=== PATIENT | female | born 1940 ===

== ENCOUNTER → 2024-02-20 13:11 | Outpatient (REF) | payer MEDICARE, OTHER, SELFPAY ==
[2024-02-20 13:34] LABS: % Basophils 0.2 % (0-2); % Immature Granulocytes 0.5 % (0-0.5); % Lymphocytes 15.8 % (20.5-51.1); % Monocytes 4.8 % (1.7-9.3); % Neutrophils 76.7 % (42.2-75.2); Absolute Eosinophils 0.3 10^3/uL (0-0.7); Absolute Immature Granulocytes 0.1 10^3/uL (0-0.05); Absolute Monocytes 0.6 10^3/uL (0.1-0.6); Absolute Neutrophils 9.8 10^3/uL (1.4-6.5); Hematocrit 38.7 % (37.0-47.0); Hemoglobin 11.7 g/dL (12.0-16.0); Mean Corp Hgb Conc. 30.2 g/dL (33.0-37.0); Mean Corpuscular Hgb 27.6 pg (27.0-31.0); Mean Corpuscular Volume 91.3 fL (81.0-99.0); Mean Platelet Volume 10.6 fL (7.4-10.4); Platelet Count 400 10^3/uL (130-400); Red Blood Cell Count 4.24 10^6/uL (4.20-5.40); Red Cell Dist. Width 19.9 % (11.5-14.5); White Blood Cell Count 12.8 10^3/uL (4.8-10.8)
[2024-02-20 14:28] LABS: ALT (SGPT) 11 U/L (0-35); AST (SGOT) 14 U/L (14-36); Albumin 2.4 g/dl (3.5-5.0); Alkaline Phosphatase 118 U/L (38-126); Blood Urea Nitrogen 14 mg/dl (7-17); Calcium 8.2 mg/dl (8.4-10.2); Carbon Dioxide 24 mmol/L (22-30); Chloride 102 mmol/L (98-107); Glucose 101 mg/dl (70-99); Potassium 3.9 mmol/L (3.5-5.1); Sodium 133 mmol/L (135-145); Total Protein 4.9 g/dl (6.3-8.2); eGFR > 60.00
[2024-02-20 14:56] LABS: TSH 4.33 uIU/ml (0.47-4.68)
[2024-02-20 18:46] LABS: CA 125 308 U/mL (0-35)
== END ==
LOC: OIDL 13:11
PROVIDERS: ATTENDING PHYSICIAN Obstetrics & Gynecology Gynecologic Oncology; FAMILY PHYSICIAN Internal Medicine Geriatric Medicine
DX: C18.7 Malignant neoplasm of sigmoid colon (principal); R18.0 Malignant ascites; C54.1 Malignant neoplasm of endometrium
CPT/HCPCS: 80053; 84443; 85025; 86304

== ENCOUNTER → 2024-03-08 11:14 | Outpatient (REF) | payer MEDICARE, OTHER, SELFPAY ==
[2024-03-08 11:33] VITALS: BP 131/99; BP_SYST 94
[2024-03-08 12:23] VITALS: BP 121/109
[2024-03-08 14:12] LABS: Body Fluid WBC 5210 /CUMM
[2024-03-08 14:13] LABS: Body Fluid Mononuclear 22.7 %; Body Fluid Polymorphonuclear 77.3 %
[2024-03-08 15:38] LABS: Body Fluid Second Tech DW
== END ==
LOC: RADI 11:14
PROVIDERS: ATTENDING PHYSICIAN Physician Assistant Surgical
DX: C54.1 Malignant neoplasm of endometrium (principal); R18.0 Malignant ascites
CPT/HCPCS: 88305; 49083; 88112; 88341; 88342; 88360; 89051

== ENCOUNTER → 2024-03-26 12:48 | Outpatient (REF) | payer MEDICARE, OTHER, SELFPAY ==
[2024-03-26 13:12] VITALS: BP 106/89
== END ==
LOC: RADI 12:48
PROVIDERS: ATTENDING PHYSICIAN Nurse Practitioner Adult Health
DX: J90 Pleural effusion, not elsewhere classified (principal)
CPT/HCPCS: 32555; 71045

== ENCOUNTER → 2024-04-03 07:56 | Outpatient (REF) | payer MEDICARE, OTHER, SELFPAY ==
[2024-04-03 08:34] VITALS: BP 108/96; BP_SYST 75
[2024-04-03 09:09] VITALS: BP 119/99
[2024-04-03 10:42] LABS: Body Fluid Mononuclear 24.6 %; Body Fluid Polymorphonuclear 75.4 %; Body Fluid WBC 527 /CUMM
[2024-04-03 10:45] LABS: Body Fluid Second Tech EM
== END ==
LOC: RADI 07:56
PROVIDERS: ATTENDING PHYSICIAN Physician Assistant Surgical; FAMILY PHYSICIAN Internal Medicine; OTHER PHYSICIAN Family Medicine; OTHER PHYSICIAN Obstetrics & Gynecology Gynecologic Oncology
DX: C80.1 Malignant (primary) neoplasm, unspecified (principal); R18.0 Malignant ascites; J91.0 Malignant pleural effusion
CPT/HCPCS: 32555; 49083; 71045; 89051

== ENCOUNTER → 2024-04-26 08:40 | Outpatient (REF) | payer MEDICARE, OTHER, SELFPAY ==
[2024-04-26 08:57] VITALS: BP 129/97; BP_SYST 70
[2024-04-26 09:34] VITALS: BP 133/84
[2024-04-26 10:53] LABS: Body Fluid Polymorphonuclear 39.2 %; Body Fluid WBC 474 /CUMM
[2024-04-26 10:54] LABS: Body Fluid Mononuclear 60.8 %
[2024-04-26 11:56] LABS: Body Fluid Second Tech CMB
== END ==
LOC: RADI 08:40
PROVIDERS: Physician Assistant; ATTENDING PHYSICIAN Physician Assistant Surgical
DX: C80.1 Malignant (primary) neoplasm, unspecified (principal); R18.0 Malignant ascites
CPT/HCPCS: 49083; 89051

== ENCOUNTER 2024-05-28 17:31 | Inpatient (IN) | payer MEDICARE, OTHER, SELFPAY ==
[2024-05-28] VITALS (9 sets, daily range): BP systolic 100–136; BP diastolic 56–104; BMI 23.3
[2024-05-28 13:20] LABS: % Basophils 0.3 % (0-2); % Immature Granulocytes 0.8 % (0-0.5); % Lymphocytes 9.9 % (20.5-51.1); % Monocytes 4.7 % (1.7-9.3); % Neutrophils 84.3 % (42.2-75.2); Absolute Basophils 0.1 10^3/uL (0-0.2); Absolute Immature Granulocytes 0.1 10^3/uL (0-0.05); Absolute Lymphocytes 1.7 10^3/uL (1.2-3.4); Absolute Monocytes 0.8 10^3/uL (0.1-0.6); Absolute Neutrophils 14.4 10^3/uL (1.4-6.5); Hematocrit 39.4 % (37.0-47.0); Hemoglobin 12.2 g/dL (12.0-16.0); Mean Corpuscular Hgb 25.2 pg (27.0-31.0); Mean Corpuscular Volume 81.4 fL (81.0-99.0); Mean Platelet Volume 10.2 fL (7.4-10.4); Nucleated Red Blood Cells % 0 %; Platelet Count 398 10^3/uL (130-400); Red Blood Cell Count 4.84 10^6/uL (4.20-5.40); Red Cell Dist. Width 20.6 % (11.5-14.5)
[2024-05-28 13:40] LABS: ALT (SGPT) 12 U/L (0-35); AST (SGOT) 17 U/L (14-36); Albumin 3.1 g/dl (3.5-5.0); Alkaline Phosphatase 96 U/L (38-126); Blood Urea Nitrogen 31 mg/dl (7-17); Calcium 9.2 mg/dl (8.4-10.2); Carbon Dioxide 26 mmol/L (22-30); Chloride 103 mmol/L (98-107); Glucose 132 mg/dl (70-99); Lipase 24 U/L (23-300); Potassium 3.9 mmol/L (3.5-5.1); Sodium 140 mmol/L (135-145); Total Bilirubin 1.4 mg/dl (0.2-1.3); eGFR > 60.00
--- NOTE | 2024-05-28 14:18 | ED.GENMED ---
History of Present Illness
<Erika Herrera NP - Last Filed: 05/28/24 21:25>
General
Chief Complaint: Abdominal Symptoms
Source: patient and family (son)
Exam Limitations: none
Time Seen by Provider: 05/28/24 14:07
Nursing documentation reviewed up to this point in time: agreed with
History of Present Illness
History of Present Illness:
Patient to ED with complaint of intractable vomiting. She was admited to [facility] this past for same. Treated with IV fluids and zofran, stabilized. Discharged home on 3 day course of cefuroxime for possible utI, however she did not
take the antibiotic. Reviewing discharge summary from [facility], CT reveals 4mm left proximal ureteral calculus with moderate hydronephrosis. Also with large bilateral pleural effusions and opacity RLL concerning for pneumonia. (does not appear that
antibiotics were given inpatient) gastritis. 10cm fluid collection noted overlying right hepatic lobe, loculated simple fluid collection seen posterior to gastric fundus. Mild free fluid throughout abdomen. She did well until last PM when
symptoms returned. Taking Zofran at home without relief. Her PCP prescribed rectal compazine with some decrease in her vomiting. She was diagnosed with endometrial CA 2021. SHe had a hysterectomy and was started on chemo q 6 weeks thru [facility].
Son states she was told she was in remission. Last year new 'non aggressive tumors' in pelvis were identified She was referred to [facility] by PCP and was stared on chemo weekly Oct 2023. SOn states she was unable to tolerate the chemo and this was
then stopped in Jan 2024. Since then she has hand multiple paracentesis for abd. ascites. Last one 3-4 weeks ago. She is now following with oncology thru [place] so son brought her here for continuity. She denies fever/chills. Reports
generalized abdominal discomfort and bloating. Report of discharge summary scanned to chart.
Past History
<Erika Herrera NP - Last Filed: 05/28/24 21:25>
Past History
ED Past Medical History: Arrthythmia (afib), Cancer ( uterine), HTN, Hypothyroidism and Other (neuropathy)
ED Past Surgical History: Gynecological (hysterectomy 2021)
Review of Systems
<Erika Herrera NP - Last Filed: 05/28/24 21:25>
Review of Systems
Allergies reviewed?: Yes
All Other Systems: ROS reviewed and negative except as documented in HPI and ROS
Constitutional: Reports fatigue
EENT: Reports no symptoms
Respiratory: Reports no symptoms
Cardiac: Reports no symptoms
ABD/GI: Reports abdominal pain (generalized discomfort), nausea, vomiting and anorexia
: Reports no symptoms
Musculoskeletal: Reports no symptoms
Skin: Reports no symptoms
Neurological: Reports weakness
Psychiatric: Reports no symptoms
Phy Exam
<Erika Herrera NP - Last Filed: 05/28/24 21:25>
General Physical Exam
General Presentation: mild distress
General age: appears stated age
General Skin: warm and dry
General Habitus: normal
General Mental: alert
Cardiovascular Exam
Cardiovascular Exam: regular rate/rhythm
Pulmonary Exam
Pulmonary Exam: lungs clear, no respiratory distress and chest non tender
Gastrointestinal Exam
Gastrointestinal Exam: normal bowel sounds, no organomegaly, no pulsatile mass and non distended
Palpation: generalized: Mild tenderness
Musculoskeletal Exam
Musculoskeletal Exam: full ROM and edema (+3edema RLE, +2 LLE)
Skin Exam
Skin Exam: normal color, warm/dry and no rash
Psychiatric Exam
Psychiatric Exam: normal mood/affect
Course
<Erika Herrera NP - Last Filed: 05/28/24 21:25>
Orders/Labs/Results
Orders:
Orders
05/28/24 12:55
Electrocardiogram (*1) Urgent
Reason for Study: Fatigue / Weakness
EKG- Treatment ONCE
05/28/24 13:03
Complete Blood Count/With Diff Urgent
Comprehensive Metabolic Panel Urgent
Digoxin Urgent
Comment: ADD ON
Lipase Urgent
05/28/24 14:17
Urinalysis Reflex To Culture Urgent
0.9% Sodium Chloride 500 ml [Nss] 500 ml IV BOLUS
Prochlorperazine [Compazine] 10 mg IV NOW STA
05/28/24 14:18
CT Abd/pel W Iv Cont (trauma) Urgent
Comment:
Reason For Exam: intractable vomiting
05/28/24 14:34
CR Chest - 2 Views Urgent
Comment:
Reason For Exam: SOB
05/28/24 14:50
COVID-19 Antigen Urgent
Source: Nasal Swab
Influenza A+B Rapid Molecular Urgent
GABRIELE Source: Nasal Swab
Specimen Description:
05/28/24 14:56
Lactic Acid Urgent
Blood Culture Urgent
GABRIELE Source: Blood/Venous
Specimen Description:
05/28/24 15:29
Cefepime HCl [Maxipime] 2,000 mg IV NOW STA
05/28/24 16:21
Vancomycin [Vancocin] 1,500 mg 0.9% Sodium Chloride 500 ml [Nss] 500 ml IV NOW
05/28/24 17:20
Add On- LAB Urgent
Tests Added?: digoxin
Admit/Transfer Patient As Directed
Co-Sign Provider:
Level of Care: Inpatient admission
Assign to:: Telemetry
Physician / Group: davin omalley
Diagnosis: pleural effusion
Reason for Telemetry: Arrhythmia
Date to Stop Telemetry: 05/31/24
Time to Stop Telemetry: 11:00
Reason for Hospitalization: pleural effusion
ascites
Expected length of stay greater than two midnights?: Yes
ELOS- Estimated Length of Stay in days: 3
I certify the patient meets the requirements for IP care: Yes
05/28/24 17:21
PRN Pain Medication Management As Directed
May give lesser potent ordered pain med per pt: Yes
preference::
Protocol:: Medication orders for pain may be administered in a
manner that supports deferring to patient preference
when the pt is:
- Requesting an ordered lesser potent pain medication.
Least to most potent pain medications are defined
as: acetaminophen < NSAID < tramadol < opioids
(morphine, oxycodone, hydromorphone).
- Requesting a lesser dose of the same medication IF
ORDERED.
- Requesting a less intrusive route of administration
if both routes are prescribed by the provider (PO <
IV).
05/28/24 17:22
Code Status As Directed
Resuscitation Status: Full Code
05/28/24 17:31
Code Status As Directed
Resuscitation Status: Limited DNR
Limited DNR: -No intubation
05/28/24 21:16
Lactic Acid Q4H
0.9% Sodium Chloride 1000 ml [Nss] 1,000 ml IV 40 mls/hr
Acetaminophen [Tylenol] 650 mg PO Q4HPRN PRN
Albuterol [ProAIR HFA INHALER] 2 puff INH R Q6HPRN PRN
Bisacodyl [Dulcolax] 10 mg RECTAL [id number] PRN
Docusate W/Senna [Senokot-S] 1 tablet PO BIDPRN PRN
Metoprolol [Lopressor] 25 mg PO BID
Metoprolol [Lopressor] 5 mg IV Q6HPRN PRN
Ondansetron Injectable [Zofran] 4 mg IV Q6HPRN PRN
Polyethylene Glycol Powder [Miralax] 17 grams PO DAILYPRN PRN
cycloSPORINE [Restasis 0.05% Ophthalmic Emulsion] 1 drops BOTH EYES QID
05/28/24 21:16
Add On- LAB Routine
Tests Added?: Body Fluid Triglycerides
IRAD CONSULT Routine
Consulting Provider: Bakari Rubio
Was physician already notified: Yes
Reason for Consult/Procedure: para, thora
Acknowledgement that appropriate orders are entered: Yes
ONCOLOGY CONSULT Routine
Consulting Provider: Aure Larry
Was physician already notified: Yes
Body Fluid Albumin Routine
Fluid Source: Peritoneal (Ascites)
Body Fluid Amylase Routine
Fluid Source: Peritoneal (Ascites)
Body Fluid Cell Count Routine
What is the Body Fluid: peritoneal fluid
Comment: post procedure
Body Fluid Glucose Routine
Fluid Source: Pleural
Body Fluid LDH Routine
Fluid Source: Peritoneal (Ascites)
Body Fluid Protein Routine
Fluid Source: Peritoneal (Ascites)
Body Fluid Triglycerides Routine
Fluid Source: Pleural
Body Fluid pH Routine
Fluid Source: Pleural
Glucose Routine
Hematocrit Routine
LDH Routine
Comment: post procedure, add on to morning labs if already drawn
Total Protein Routine
Comment: post procedure, add on to morning labs if already drawn
Fluid Culture with Gram Stain Routine
GABRIELE Source: Peritoneal Fluid
Specimen Description:
Comment: Post Procedure
Gram Stain Routine
GABRIELE Source: Peritoneal Fluid
Specimen Description:
Comment: Post Procedure
Activity As Directed
Activity Level: As Tolerated
Intake/ Output As Directed
Frequency: Per unit guidelines
Vital Signs As Directed
Frequency: Per unit guidelines
Weight As Directed
Frequency: Daily
IRAD Cytology Routine
Source: Peritoneal Fluid
Clinical Impression: ascites
05/28/24 21:30
Apixaban [Eliquis] 2.5 mg PO BID
05/29/24 01:16
Lactic Acid Q4H
05/29/24 06:00
Complete Blood Count/No Diff IN AM
Vancomycin Random IN AM
Levothyroxine [Synthroid] 50 mcg PO DAILY @ 0600
05/29/24 08:00
Ykhbytcdh-Xey-Cdcb [Femara] 2.5 mg PO DAILY
Potassium Chloride [KCl] 10 meq PO DAILY
05/29/24 12:00
Digoxin [Lanoxin] 62.5 mcg PO NOON
05/30/24 06:00
Complete Blood Count/No Diff IN AM
05/31/24 06:00
Complete Blood Count/No Diff IN AM
05/31/24 11:00
DC Protocol for Telemetry ONCE
06/01/24 06:00
Complete Blood Count/No Diff IN AM
Abnormal Lab Results
05/28/24 05/28/24
13:03 14:56
WBC 17.0 H 10^3/uL
(4.8-10.8)
MCH 25.2 L pg
(27.0-31.0)
MCHC 31.0 L g/dL
(33.0-37.0)
RDW 20.6 H %
(11.5-14.5)
Abs Immat Gran (auto) 0.1 H 10^3/uL
(0-0.05)
Absolute Neuts (auto) 14.4 H 10^3/uL
(1.4-6.5)
Absolute Monos (auto) 0.8 H 10^3/uL
(0.1-0.6)
Immature Gran % 0.8 H %
(0-0.5)
Neutrophils % 84.3 H %
(42.2-75.2)
Lymphocytes % 9.9 L %
(20.5-51.1)
BUN 31 H mg/dl
(7-17)
Glucose 132 H mg/dl
(70-99)
Lactic Acid 2.3 H mmol/L
(0.7-2.0)
Total Bilirubin 1.4 H mg/dl
(0.2-1.3)
Total Protein 5.7 L g/dl
(6.3-8.2)
Albumin 3.1 L g/dl
(3.5-5.0)
Digoxin < 0.4 L ng/ml
(0.8-2.0)
05/28/24 13:03
05/28/24 13:03
Vital Signs
Initial and Last Documented VS:
Initial Vital Signs
Temp Pulse Resp BP Pulse Ox
98.0 F 80 18 115/56 96
05/28/24 12:50 05/28/24 12:50 05/28/24 12:50 05/28/24 12:50 05/28/24 12:50
Last Documented Vital Signs
Temp Pulse Resp BP Pulse Ox
98.0 F 100 14 114/76 94
05/28/24 12:50 05/28/24 18:00 05/28/24 18:00 05/28/24 18:00 05/28/24 17:30
<Jacobo Kline, DO - Last Filed: 05/28/24 20:05>
Orders/Labs/Results
Orders:
Orders
05/28/24 12:55
Electrocardiogram (*1) Urgent
Reason for Study: Fatigue / Weakness
EKG- Treatment ONCE
05/28/24 13:03
Complete Blood Count/With Diff Urgent
Comprehensive Metabolic Panel Urgent
Digoxin Urgent
Comment: ADD ON
Lipase Urgent
05/28/24 14:17
Urinalysis Reflex To Culture Urgent
0.9% Sodium Chloride 500 ml [Nss] 500 ml IV BOLUS
Prochlorperazine [Compazine] 10 mg IV NOW STA
05/28/24 14:18
CT Abd/pel W Iv Cont (trauma) Urgent
Comment:
Reason For Exam: intractable vomiting
05/28/24 14:34
CR Chest - 2 Views Urgent
Comment:
Reason For Exam: SOB
05/28/24 14:50
COVID-19 Antigen Urgent
Source: Nasal Swab
Influenza A+B Rapid Molecular Urgent
GABRIELE Source: Nasal Swab
Specimen Description:
05/28/24 14:56
Lactic Acid Urgent
Blood Culture Urgent
GABRIELE Source: Blood/Venous
Specimen Description:
05/28/24 15:29
Cefepime HCl [Maxipime] 2,000 mg IV NOW STA
05/28/24 16:21
Vancomycin [Vancocin] 1,500 mg 0.9% Sodium Chloride 500 ml [Nss] 500 ml IV NOW
05/28/24 17:20
Add On- LAB Urgent
Tests Added?: digoxin
Admit/Transfer Patient As Directed
Co-Sign Provider:
Level of Care: Inpatient admission
Assign to:: Telemetry
Physician / Group: davin omalley
Diagnosis: pleural effusion
Reason for Telemetry: Arrhythmia
Date to Stop Telemetry: 05/31/24
Time to Stop Telemetry: 11:00
Reason for Hospitalization: pleural effusion
ascites
Expected length of stay greater than two midnights?: Yes
ELOS- Estimated Length of Stay in days: 3
I certify the patient meets the requirements for IP care: Yes
05/28/24 17:21
PRN Pain Medication Management As Directed
May give lesser potent ordered pain med per pt: Yes
preference::
Protocol:: Medication orders for pain may be administered in a
manner that supports deferring to patient preference
when the pt is:
- Requesting an ordered lesser potent pain medication.
Least to most potent pain medications are defined
as: acetaminophen < NSAID < tramadol < opioids
(morphine, oxycodone, hydromorphone).
- Requesting a lesser dose of the same medication IF
ORDERED.
- Requesting a less intrusive route of administration
if both routes are prescribed by the provider (PO <
IV).
05/28/24 17:22
Code Status As Directed
Resuscitation Status: Full Code
05/28/24 17:31
Code Status As Directed
Resuscitation Status: Limited DNR
Limited DNR: -No intubation
05/28/24 21:16
Lactic Acid Q4H
0.9% Sodium Chloride 1000 ml [Nss] 1,000 ml IV 40 mls/hr
Acetaminophen [Tylenol] 650 mg PO Q4HPRN PRN
Albuterol [ProAIR HFA INHALER] 2 puff INH R Q6HPRN PRN
Bisacodyl [Dulcolax] 10 mg RECTAL [id number] PRN
Docusate W/Senna [Senokot-S] 1 tablet PO BIDPRN PRN
Metoprolol [Lopressor] 25 mg PO BID
Metoprolol [Lopressor] 5 mg IV Q6HPRN PRN
Ondansetron Injectable [Zofran] 4 mg IV Q6HPRN PRN
Polyethylene Glycol Powder [Miralax] 17 grams PO DAILYPRN PRN
cycloSPORINE [Restasis 0.05% Ophthalmic Emulsion] 1 drops BOTH EYES QID
05/28/24 21:16
Add On- LAB Routine
Tests Added?: Body Fluid Triglycerides
IRAD CONSULT Routine
Consulting Provider: Bakari Rubio
Was physician already notified: Yes
Reason for Consult/Procedure: para, thora
Acknowledgement that appropriate orders are entered: Yes
ONCOLOGY CONSULT Routine
Consulting Provider: Aure Larry
Was physician already notified: Yes
Body Fluid Albumin Routine
Fluid Source: Peritoneal (Ascites)
Body Fluid Amylase Routine
Fluid Source: Peritoneal (Ascites)
Body Fluid Cell Count Routine
What is the Body Fluid: peritoneal fluid
Comment: post procedure
Body Fluid Glucose Routine
Fluid Source: Pleural
Body Fluid LDH Routine
Fluid Source: Peritoneal (Ascites)
Body Fluid Protein Routine
Fluid Source: Peritoneal (Ascites)
Body Fluid Triglycerides Routine
Fluid Source: Pleural
Body Fluid pH Routine
Fluid Source: Pleural
Glucose Routine
Hematocrit Routine
LDH Routine
Comment: post procedure, add on to morning labs if already drawn
Total Protein Routine
Comment: post procedure, add on to morning labs if already drawn
Fluid Culture with Gram Stain Routine
GABRIELE Source: Peritoneal Fluid
Specimen Description:
Comment: Post Procedure
Gram Stain Routine
GABRIELE Source: Peritoneal Fluid
Specimen Description:
Comment: Post Procedure
Activity As Directed
Activity Level: As Tolerated
Intake/ Output As Directed
Frequency: Per unit guidelines
Vital Signs As Directed
Frequency: Per unit guidelines
Weight As Directed
Frequency: Daily
IRAD Cytology Routine
Source: Peritoneal Fluid
Clinical Impression: ascites
05/28/24 21:30
Apixaban [Eliquis] 2.5 mg PO BID
05/29/24 01:16
Lactic Acid Q4H
05/29/24 06:00
Complete Blood Count/No Diff IN AM
Vancomycin Random IN AM
Levothyroxine [Synthroid] 50 mcg PO DAILY @ 0600
05/29/24 08:00
Meuvgfern-Awx-Nnuj [Femara] 2.5 mg PO DAILY
Potassium Chloride [KCl] 10 meq PO DAILY
05/29/24 12:00
Digoxin [Lanoxin] 62.5 mcg PO NOON
05/30/24 06:00
Complete Blood Count/No Diff IN AM
05/31/24 06:00
Complete Blood Count/No Diff IN AM
05/31/24 11:00
DC Protocol for Telemetry ONCE
06/01/24 06:00
Complete Blood Count/No Diff IN AM
Abnormal Lab Results
05/28/24 05/28/24
13:03 14:56
WBC 17.0 H 10^3/uL
(4.8-10.8)
MCH 25.2 L pg
(27.0-31.0)
MCHC 31.0 L g/dL
(33.0-37.0)
RDW 20.6 H %
(11.5-14.5)
Abs Immat Gran (auto) 0.1 H 10^3/uL
(0-0.05)
Absolute Neuts (auto) 14.4 H 10^3/uL
(1.4-6.5)
Absolute Monos (auto) 0.8 H 10^3/uL
(0.1-0.6)
Immature Gran % 0.8 H %
(0-0.5)
Neutrophils % 84.3 H %
(42.2-75.2)
Lymphocytes % 9.9 L %
(20.5-51.1)
BUN 31 H mg/dl
(7-17)
Glucose 132 H mg/dl
(70-99)
Lactic Acid 2.3 H mmol/L
(0.7-2.0)
Total Bilirubin 1.4 H mg/dl
(0.2-1.3)
Total Protein 5.7 L g/dl
(6.3-8.2)
Albumin 3.1 L g/dl
(3.5-5.0)
Digoxin < 0.4 L ng/ml
(0.8-2.0)
05/28/24 13:03
05/28/24 13:03
Vital Signs
Initial and Last Documented VS:
Initial Vital Signs
Temp Pulse Resp BP Pulse Ox
98.0 F 80 18 115/56 96
05/28/24 12:50 05/28/24 12:50 05/28/24 12:50 05/28/24 12:50 05/28/24 12:50
Last Documented Vital Signs
Temp Pulse Resp BP Pulse Ox
98.0 F 100 14 114/76 94
05/28/24 12:50 05/28/24 18:00 05/28/24 18:00 05/28/24 18:00 05/28/24 17:30
<Erika Herrera [employer] - Last Filed: 05/28/24 21:25>
*Critical Care Note
Total Time (30-74mins, 75-104mins- exclusive of procedures): Not Applicable
<Erika Herrera NP - Last Filed: 05/28/24 21:25>
Update Note
Update Note:
Patient to ED wtih complaint of n/v x 24 hours. Given a small amt of IVF in ED due to edema/ascites present. No further vomiting since compazine. Still reports nausea. COmplains of weakness, abd. pain. CT and lab results reviewed. Bilateral
large pleural effusions.Thoracentesis can not be completed now due to eliquis use. Multiple loculated collecions within peritoneal cavity. Case discussed with Dr. Kline. Will admit to hospitalist service.
ED Attending Note
<Erika Herrera NP - Last Filed: 05/28/24 21:25>
-
Portions of this chart may have been created with voice recognition software.� Occasional wrong word or��sound alike� substitutions may have occurred due to the inherent limitations of voice recognition software.
<Jacobo Kline, DO - Last Filed: 05/28/24 20:05>
ED Attending Note
Patient seen and examined by attending physician: Yes
I performed the substantive portion of visit, reviewed & personally made and approve the management plan that is documented in note by myself or GALILEA.: Yes
ED Attending Note:
I evaluated the patient bedside. The patient is tachycardic with dry oromucosa. Agree with initially only given 500 mL of fluid as the patient does have ascites and rather large pleural effusions. Sats on room air 90%. Held off on immediate
thoracentesis as patient is on Eliquis. Planning admission to the hospital.
Discharge Plan
Departure
Patient Disposition: Admit
Date of Disposition: 05/28/24
Time of Disposition: 16:22
Presentation/result/management discussed w/ accepting MD/DO: Hospitalist
Patient with high blood pressure during this ER visit?: Yes
Condition: Fair
Covid-19: Not Applicable
Discharge Problem:
Bilateral pleural effusion, Abdominal ascites, Vomiting, Weakness
Interventions
Interventions:
*Risk Screen - Suicide Last Done: 05/28/24 12:50
*General Assessment Last Done: 05/28/24 15:04
*Neglect/Abuse Screening Last Done: 05/28/24 12:50
*ED- Fall Risk Assessment Last Done: 05/28/24 15:04
*ED COVID-19 Vaccine History Last Done: 05/28/24 15:04
NV-Gxcovl-Pnpzqslefw Assessment Last Done: 05/28/24 15:04
[2024-05-28 14:24] LABS: Total Protein 5.7 g/dl (6.3-8.2)
[2024-05-28 15:18] LABS: Lactic Acid 2.3 mmol/L (0.7-2.0)
[2024-05-28 15:33] LABS: COVID-19 Antigen Negative (Negative)
[2024-05-28] MEDS: MAXIPIME 2000 MG IV (15:58)
[2024-05-28] MEDS: NSS 500 IV (15:58)
[2024-05-28] MEDS: COMPAZINE IV ×2 (15:58→16:04)
[2024-05-28] MEDS: VANCOCIN 530 MG IV (16:37)
--- NOTE | 2024-05-28 16:42 | PHA.VAN.IN ---
Assessment
- Assessment
Renal Function: Appears similar to baseline (0.8)
Concomitant Antimicrobials: Cefepime
Plan
- Plan
Initial / Loading Dose: Vanco 1500mg Loading administered 05/28/24 1637
Maintenance Regimen: Dose by level
Monitoring: Vanco R level 05/29/24 0600
Patient renal function seemingly at baseline, but could be slightly elevated. Start with PRN by level; if stable then consider scheduled dosing - 750mg Q24H (AUC 443, Cmax 29.3, Cmin 10.6)
Pharmacokinetics Vancomycin I
- -
Patient Age: 83
Patient Sex: Female
Vancomycin Day #: 1
Indication: Bacteremia
Requesting Provider: Jimy
Pertinent Antimicrobial Allergies:
No antibiotic allergies
Height / Weight:
Height 5 ft 1 in
Actual Weight 56 kg
- Vital Signs / Lab Results
Temp Pulse Resp BP Pulse Ox
98.0 F 80 18 115/56 93
05/28/24 12:50 05/28/24 12:50 05/28/24 12:50 05/28/24 12:50 05/28/24 15:00
Lab Results - Hematology
05/28/24
13:03
WBC 17.0 H
Lab Results - Chemistry
05/28/24
13:03
BUN 31 H
Creatinine 0.8
Albumin 3.1 L
05/28/24
14:56
Lactic Acid 2.3 H
Microbiology Results
05/28/24 14:50 Influenza Types A & B ([facility]) - Final
Nasal Swab Negative for Influenza A & B, NAAT
Negative results must be combined with clinical observations
and patient history.
Nucleic Acid Amplification test (NAAT)performed on the
sones platform.
--- NOTE | 2024-05-28 16:50 | HPS.HSE ---
Family Physician
-
Family Physician: Aleida Lerma
Chief Complaint
-
vomitting
History of Present Illness
Calculus. Diffuse gastric edema suspicious for gastritis 83 year old with PMH endometrial cancer, hypertension, A-fib on Eliquis, neuropathy, uterine cancer, gastric cancer who presented to us with vomiting since yesterday noon. Patient stated
abdominal bloating, denies diarrhea. Patient denies any headache, dizziness or syncope. Patient denied chest pain or shortness of breath. Denied abdominal pain or diarrhea. Patient denied any hematuria. Patient was noted to have bilateral lower
extremity edema which is much better.
patient recieved paracentesis 3-4 weeks ago. thoracentesis sometime in January or February.
Patient was admitted at [facility] with abdominal pain and vomiting. Chest x-ray at [facility] with moderate to large bilateral pleural effusion with bibasilar airspace opacities. CT chest, thorax and abdomen and pelvis with
impression of pleural effusion and atelectasis of left lower lobe concerning for pneumonia. She was also noted to have left-sided hydronephrosis due to 4 mm no patient to ED with complaint of intractable vomiting0. Patient was evaluated by
cardiology, GI and urology with no intervention as per urology. Patient was sent home on cefuroxime for 3 days for possible UTI. Patient did not take the medication at home.
She also has history for endometrial cancer with some tumors in her pelvic region. Chemo was last received in January. She was not tolerating chemo due to multiple side effects.
[facility] and Dr. Lizarraga.
Chest x-ray and CT of abdomen pelvis with impression of ascites and pleural effusion. Admitting for further management.
Patient received cefepime, #, Compazine, vancomycin in ER. Blood cultures, UA ordered in ER.
Admitted for further management
Medical History
Past Medical History
Past Medical History: Reports Other
Additional Past Medical History:
A-fib
Hyperlipidemia
Endometrial cancer
Hypertension
Metabolic syndrome
Malignant ascites
Malignant pleural effusion
Sigmoid colon cancer
Hypothyroidism
Past Surgical History: Reports Other
Additional Past Surgical History:
Hernia repair
Hysterectomy
Social History
Tobacco: Non-smoker
Alcohol: None
Drug: None
Personal:
Living: With Family
Family History
Family History: Not pertinent
Allergies / Home Medications
Allergies reflects when Allergies were last updated in [employer].
Home Medications with original date entered in [employer]
Allergy/Medication List:
Allergies
Allergy/AdvReac Type Severity Reaction Status Date / Time
codeine Allergy Unknown Verified 05/28/24 12:54
gabapentin Allergy Unknown Verified 05/28/24 12:54
paclitaxel [From Taxol] Allergy Unknown Verified 05/28/24 12:54
Home Medications
letrozole 2.5 mg tablet 2.5 mg PO DAILY 03/07/24
albuterol sulfate 90 mcg/actuation aerosol inhaler 2 puff inhalation R Q6HPRN PRN sob 05/28/24
apixaban 5 mg tablet (Eliquis) 5 mg PO BID 05/28/24
cyanocobalamin (vitamin B-12) 1 dose SC QMONTH 05/28/24
cyclosporine 0.05 % eye drops in a dropperette (Restasis) 1 drp BOTH EYES QID 05/28/24
digoxin 62.5 mcg (0.0625 mg) tablet 62.5 mcg PO DAILY 05/28/24
diphenoxylate-atropine 2.5 mg-0.025 mg tablet (Lomotil) 1 tab PO Q6HPRN PRN diarrhea 05/28/24
furosemide 20 mg tablet 20 mg PO DAILY 05/28/24
levothyroxine 50 mcg tablet 50 mcg PO DAILY 05/28/24
metoprolol tartrate 25 mg tablet 25 mg PO BID 05/28/24
ondansetron HCl 8 mg tablet 8 mg PO Q8HPRN PRN nausea 05/28/24
pantoprazole 40 mg tablet,delayed release 40 mg PO DAILYPRN PRN heartburn 05/28/24
potassium chloride 10 mEq tablet,extended release 10 meq PO DAILY 05/28/24
prochlorperazine 25 mg rectal suppository 25 mg ND DAILYPRN PRN nausea 05/28/24
sennosides 8.6 mg tablet (senna) 8.6 mg PO BIDPRN PRN constipation 05/28/24
Review of Systems
-
Constitutional: Reports No Symptoms
EENT: Reports No Symptoms
Respiratory: Reports No Symptoms
Cardiac: Reports No Symptoms
Abdomen/GI: Reports Vomiting and Other (Bloating)
: Reports No Symptoms
Musculoskeletal: Reports No Symptoms
Skin: Reports No Symptoms
Neurological: Reports No Symptoms
Endocrine: Reports No Symptoms
Hematologic/Lymphatic: Reports No Symptoms
Psych: Reports No Symptoms
Physical Exam
Vital Signs
Vital Signs
Temp Pulse Resp BP Pulse Ox
98.0 F 80 18 115/56 93
05/28/24 12:50 05/28/24 12:50 05/28/24 12:50 05/28/24 12:50 05/28/24 15:00
Physical Exam
General: Well Developed, Well Nourished and No Apparent Distress
HEENT: NormoCephalic, Moist mucous membranes and Atraumatic
Respiratory: Clear
Cardiac: S1/S2 and Regular Rhythm; No Murmur or Rub
GI: Soft, Non Tender, Normal Bowel Sounds and Distended; No Organomegaly
Rectal: Deferred by Provider
Musculoskeletal: No Clubbing, No Cyanosis and No Edema
Skin: No Rash
Neuro: AO x 3 and Nonfocal/grossly intact
Psych: Calm
Laboratory Results
-
05/28/24 13:03
05/28/24 13:03
Laboratory Results
Lactic Acid 2.3 mmol/L (0.7-2.0) H 05/28/24 14:56
Total Bilirubin 1.4 mg/dl (0.2-1.3) H 05/28/24 13:03
AST 17 U/L (14-36) 05/28/24 13:03
ALT 12 U/L (0-35) 05/28/24 13:03
Alkaline Phosphatase 96 U/L (38-126) 05/28/24 13:03
Lipase 24 U/L (23-300) 05/28/24 13:03
Data Reviewed
-
Diagnostic Radiology: Report Reviewed by me
CT Scan: Report Reviewed by me
Lab Data: Labs Reviewed by me
Impression/Plan
-
# Bilateral malignant large pleural effusion
- Chest x-ray with moderate/large bilateral pleural effusion
- IR consulted for thoracentesis
# Malignant ascites
- CT abdomen pelvis with impression of Multiple loculated collections of fluid within the peritoneal cavity, with thickening of the surrounding peritoneum, as detailed above. Findings likely represent complex ascites, possibly malignant given
history of endometrial cancer.
2. Moderate bilateral pleural effusions, with bibasilar compressive atelectasis.
3. Small hypoattenuating lesion within the anterior subcapsular liver measures 7 mm in diameter, not definitively seen on prior CT dated 01/28/2024. This lesion is too small for accurate imaging characterization, but because it wasn't seen on prior
CT, hepatic metastasis is not excluded. Continued imaging surveillance is suggested.
4. Cholelithiasis without evidence of acute cholecystitis.
# History of endometrial cancer
# Lesions within the anterior subcapsular liver concern for hepatic metastasis
-Letrozole continue
- Oncology consult
# Leukocytosis/lactic acidosis
- WBC 17.0, lactic 2.3
- Patient afebrile
- UA pending
- Continue to trend lactic
#A-fib with RVR
-EKG with A-fib with RVR
- Heart rate in the 100
- Eliquis continue
- Digoxin and metoprolol continued
-obtain dig level
-Lopressor IV as needed for heart rate elevated at 120
# Bilateral lower extremities edema
- Hold Lasix
# Hypothyroidism
- Levothyroxine continued
# GERD
- PPI
# DVT prophylaxis
Patient is on Eliquis-
# CODE STATUS
- CPR but no intubation
[2024-05-28] MEDS: COMPAZINE 10 MG IV (17:24)
--- NOTE | 2024-05-28 17:32 | W.PN.UPDATE ---
Update Note
Progress Note Update
This note serves as an addendum to the H&P by assistant drafter GALILEA Edel DEL VALLE
HPI
83F HX endometrial CA, HX A Fib, HTN, Hypothyroidism, Neuropathy seen at ER:
- intractable vomiting
- was admited to [facility] last for same. Treated with IV fluids and zofran and discharged home
- on 3 day course of cefuroxime for possible UTI however she did not take the antibiotic.
- Per DC summary form [facility] CT 4mm left proximal ureteral calculus with moderate hydronephrosis
large bilateral pleural effusions and opacity RLL concerning for pneumonia
10cm fluid collection noted overlying right hepatic lobe, loculated simple fluid collection seen posterior to gastric fundus. Mild free fluid throughout abdomen.
- Initially , she did well until last PM recurrent of vomiting , took Zofran at home without relief.
- PCP prescribed rectal compazine with some decrease in her vomiting.
HX endometrial CA 2021.
- S/p hysterectomy and was started on chemo q 6 weeks thru [facility].
- Son states she was told she was in remission.
- Last year new 'non aggressive tumors' in pelvis were identified
- She was referred to [facility] by PCP and was stared on chemo weekly Oct 2023.
- Son states she was unable to tolerate the chemo and this was then stopped in Jan 2024.
- Since then she has hand multiple paracentesis for abd. ascites. Last one 3-4 weeks ago.
- She is now following with [facility] so son brought her here for continuity.
ROS
She denies fever/chills.
generalized abdominal discomfort and bloating.
At ER
Gave IV CFP and Vancomycin
PHX; see above
Reviewed VS:
Vital Signs
Temp Pulse Resp BP Pulse Ox
98.0 F 80 18 115/56 93
05/28/24 12:50 05/28/24 12:50 05/28/24 12:50 05/28/24 12:50 05/28/24 15:00
PE
Gen: conversant, not toxic
HEENT: anicteric
Neck: supple
Lungs: CTA
Cor: RRR S1 S2
Abdomen: soft NT
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
MS: no edema
Psych:normal mood and affect
Data
Laboratory Tests
02/20/24 02/20/24 05/28/24
12:10 13:09 13:03
WBC 12.8 H 17.0 H
Hgb 11.7 L 12.2
Plt Count 398
Sodium 133 L 140
Potassium 3.9 3.9
BUN 14 31 H
Creatinine 0.6 0.8
eGFR > 60.00 > 60.00
Lactic Acid 2.3
Total Bilirubin 1.4 H
UA pending
BCx sent
CXR
Moderate/large bilateral pleural effusions with adjacent opacities, likely compressive atelectasis.
CT AP
1. Multiple loculated collections of fluid within the peritoneal cavity, with thickening of the surrounding peritoneum, as detailed above. Findings likely represent complex ascites, possibly malignant given history of endometrial cancer.
2. Moderate bilateral pleural effusions, with bibasilar compressive atelectasis.
3. Small hypoattenuating lesion within the anterior subcapsular liver measures 7 mm in diameter, not definitively seen on prior CT dated 01/28/2024. This lesion is too small for accurate imaging characterization, but because it wasn't seen on prior
CT, hepatic metastasis is not excluded. Continued imaging surveillance is suggested.
4. Cholelithiasis without evidence of acute cholecystitis.
EKG
ATRIAL FIBRILLATION WITH RAPID VENTRICULAR RESPONSE WITH PREMATURE VENTRICULAR
OR ABERRANTLY CONDUCTED COMPLEXES
ST and T WAVE ABNORMALITY, CONSIDER INFEROLATERAL ISCHEMIA
ABNORMAL ECG
NO PREVIOUS ECGS AVAILABLE
Confirmed by MAURICE WALTERS MD ([id number]) on 05/28/2024 4:57:04 PM
NO PRIOR hospitalist admission:
ASSESSMENT & PLAN
Persistent emesis
Suspect related to malignant ascites with complex multiple loculated ; low suspicion for infective ascites
HX Malignant ascites and denied pain
Possible malignant peritoneal spread
HX Endometrial CA
Likely Hepatic mets per current CT
- check Dig level
- on Letrozole
- Hold of further IV ABx for now
- supportive care with anti emetics and IVF
- Last Chemo was in Jan 2024
- IR consult for abdominal paracentesis
- Onco consult
OSH Dxs of UTI but she is not taking OP ABx
- f/u UA
- Hold off ABx for now
In AF with VR 100s
HX A Fib
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
- c/w P Metoprolol tartrate
- add IV Metoprol 5 mg q6h prn for HR > 120
- check Dig level
Essential HTN
- c/w Metoprolol XL
Hypothyroidism
- c/w LT4
Neuropathy
- on Gabapentin
DVT Px:on chr Eliquis
Limited DNR ( yes to CPR but DNI )
IP TLM
[2024-05-28 18:03] LABS: Digoxin < 0.4 ng/ml (0.8-2.0)
--- NOTE | 2024-05-28 18:59 | W.CON.GYNONC ---
Chief Complaint
-
Nausea and vomiting, recurrent endometrial cancer
History of Present Illness
83F with recurrent endometrial CA, HX A Fib, HTN, Hypothyroidism, Neuropathy presents to ER today with intractable vomiting. She was admitted to [facility] last for same. Treated with IV fluids and zofran and discharged home. She is
on 3 day course of cefuroxime for possible UTI however she did not take the antibiotic.
- Per DC summary form [facility] 4mm left proximal ureteral calculus with moderate hydronephrosis
large bilateral pleural effusions and opacity RLL concerning for pneumonia
10cm fluid collection noted overlying right hepatic lobe, loculated simple fluid collection seen posterior to gastric fundus. Mild free fluid throughout abdomen.
- Initially , she did well until last PM recurrent of vomiting , took Zofran at home without relief.
- PCP prescribed rectal compazine with some decrease in her vomiting.
HX endometrial CA 2021.
- S/p hysterectomy and was started on chemo q 6 weeks thru [facility].
- Son states she was told she was in remission.
- Last year new 'non aggressive tumors' in pelvis were identified
- She was referred to [facility] by PCP and was stared on chemo weekly Oct 2023.
- Son states she was unable to tolerate the chemo and this was then stopped in Jan 2024.
- Since then she has hand multiple paracentesis for abd. ascites. Last one 3-4 weeks ago.
- She is now following with Dr Prasad and Dr Vasques thru [place] so son brought her here for continuity.
Medical History
Past Medical History
Past Medical History: Reports Other
Additional Past Medical History:
A-fib
Hyperlipidemia
Endometrial cancer
Hypertension
Metabolic syndrome
Malignant ascites
Malignant pleural effusion
Sigmoid colon cancer
Hypothyroidism
Past Surgical History: Reports Other
Additional Past Surgical History:
Hernia repair
Hysterectomy
Social History
Tobacco: Non-smoker
Alcohol: None
Drug: None
Personal:
Living: With Family
Family History
Family History: Not pertinent
Allergies / Home Medications
Medical History
Allergies
Allergies reflect when allergies were last updated in [facility].
codeine Allergy (Verified 05/28/24 12:54)
Unknown
gabapentin Allergy (Verified 05/28/24 12:54)
Unknown
paclitaxel [From Taxol] Allergy (Verified 05/28/24 12:54)
Unknown
Physical Exam
Vital Signs / I&O
Vitals
Temp Pulse Resp BP Pulse Ox
98.0 F 100 14 114/76 94
05/28/24 12:50 05/28/24 18:00 05/28/24 18:00 05/28/24 18:00 05/28/24 17:30
Results
-
05/28/24 13:03
05/28/24 13:03
[facility]
[address] [place] [address]
[phone]
Patient Name: ZEB SCHRADER
: 1940
Unit Number: [id number]
Age/Sex: 83/F
Patient
Location: EMR
Order Provider: Erika Llamas
Exam Service Date: 05/28/24

Diagnostic Imaging Report
SignedOrder #:[id number]
Exams: CT Abd/pel W Iv Cont (trauma)
CPT: 31464
EXAMINATION: Contrast enhanced CT of the abdomen and pelvis.
CLINICAL INDICATION: Abdominal pain, nausea and vomiting. History of endometrial carcinoma.
TECHNIQUE: Multidetector CT data was obtained from the lung bases through the pubic symphysis with intravenous contrast and without oral contrast. Delayed phase images were also obtained of the lower abdomen and pelvis. Axial, sagittal, and coronal
reformats were performed.
Automated dose reduction was utilized.
COMPARISON: 01/28/2024.
FINDINGS:
Lower Chest: Moderate bilateral pleural effusions are seen. Compressive atelectasis at each lung base.
Abdomen:
Peritoneum: No free intraperitoneal air.
Intra-abdominal ascites is identified, likely with some loculation and peritoneal thickening within the right upper quadrant. Right upper quadrant fluid collection measures 14.4 x 5.7 x 12.6 cm.
Additional small locules of fluid are seen within the peritoneum, including a peripancreatic collection which measures 5.6 cm in diameter, best seen on series 201 image 32. A left mid abdominal loculated collection measures 6.9 cm in diameter, best
seen on image 40.
Retroperitoneum: No pathologic lymphadenopathy is seen within the retroperitoneum.
Vessels: The abdominal aorta is of normal caliber. The IVC is within normal limits.
Liver: A hypoattenuating lesion is seen within the subcapsular liver, best seen on series 201 image 18, measuring 7 mm in diameter, not definitively seen on prior CT dated 01/28/2024..
Subcapsular hepatic lesion on image 29 measures 3 mm in diameter.
No filling defects are seen within the opacified portal or hepatic veins.
Gallbladder: Large gallstone is present within the gallbladder. No evidence of acute cholecystitis.
Bile Ducts: No significant biliary ductal dilation.
Spleen: Within normal limits.
Pancreas: No pancreatic mass or adjacent inflammatory change.
Adrenals: No adrenal mass appreciated.
Kidneys/Ureters: No nephrolithiasis or hydronephrosis on either side. No aggressive renal mass appreciated. The ureters are nondilated .
Bowel: The stomach and small bowel are not significantly dilated, and no inflammatory change is appreciated.
Bowel anastomotic sutures are seen at the rectosigmoid junction. Mild fecal retention is suggestive of mild constipation. No evidence of mechanical intestinal obstruction.
Appendix: The appendix is not well seen, however no inflammatory changes are identified to suggest appendicitis.
Pelvis: No free fluid is seen within the pelvis. No pathologic lymphadenopathy is appreciated.
Reproductive Organs: The uterus is not seen, consistent with prior hysterectomy or uterine atrophy.
Bladder: No significant bladder wall thickening or adjacent fat stranding.
Abdominal Wall: No significant abdominal wall hernia formation. No abdominal wall mass appreciated.
Bones: Compression fracture of the L5 vertebral body, with diffuse sclerosis of the L5 vertebral body. No significant change compared to prior study dated 01/28/2024.
Mild dextroscoliosis of the lumbar spine.
Paraspinal soft tissues: No significant paraspinal soft tissue stranding or large soft tissue mass.
IMPRESSION:
1. Multiple loculated collections of fluid within the peritoneal cavity, with thickening of the surrounding peritoneum, as detailed above. Findings likely represent complex ascites, possibly malignant given history of endometrial cancer.
2. Moderate bilateral pleural effusions, with bibasilar compressive atelectasis.
3. Small hypoattenuating lesion within the anterior subcapsular liver measures 7 mm in diameter, not definitively seen on prior CT dated 01/28/2024. This lesion is too small for accurate imaging characterization, but because it wasn't seen on prior
CT, hepatic metastasis is not excluded. Continued imaging surveillance is suggested.
4. Cholelithiasis without evidence of acute cholecystitis.
Electronically signed by Cam Jeffrey MD, 05/28/2024 4:00 PM
Impression / Plan
-
This patient has recently transferred her care for management of endometrial cancer to [facility]. Since I met her I have performed the investigation and no most importantly that her performance status is very poor and her options
of management is very limited. She has been managed with antiestrogen hormonal therapy.
#N/V
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 She is not a candidate for surgical treatment. I would keep n.p.o. and treat with IV fluids and only give necessary medications orally for now. She does have
some evidence of constipation on CT at least in ascending colon.
# Bilateral malignant large pleural effusion
She has had prior thoracentesis. Given the large volume and frequency of these she would be best managed by placement of Pleurx catheter at least 1 possibly bilateral
I would request interventional radiology to place 1 Pleurx catheter at this time
# Malignant ascites
She has small volume ascites in comparison to the pleural effusion, I do not see any obvious bowel obstruction. I do not feel that paracentesis going to be beneficial in this setting
# History of endometrial cancer
# Lesions within the anterior subcapsular liver concern for hepatic metastasis
-Letrozole continue
Given she is probably n.p.o. due to nausea and vomiting I will hold off on treatment.
Unfortunately there is very little in terms of therapeutics that can be offered to the patient. She is adamant that she does not want any chemotherapy. She has very poor performance status and in most of the visits in my office she has been in a
wheelchair. My recommendation is to consider palliative care consultation and consider transition of the patient to hospice.
# Leukocytosis/lactic acidosis
Patient is afebrile, she does not appear septic but most likely she is volume depleted, recommend IV hydration and close monitoring
#A-fib with RVR
-EKG with A-fib with RVR
- Heart rate in the 100
- Eliquis continue
- Digoxin and metoprolol continued
-obtain dig level
-Lopressor IV as needed for heart rate elevated at 120
# Bilateral lower extremities edema
- Hold Lasix
# Hypothyroidism
- Levothyroxine continued
# GERD
- PPI
# DVT prophylaxis
Patient is on Eliquis-
# CODE STATUS
- CPR but no intubation
[2024-05-28] MEDS: ELIQUIS 2.5 MG PO (21:37)
[2024-05-28] MEDS: LOPRESSOR 25 MG PO (21:37)
[2024-05-28] MEDS: NSS 1000 IV (21:38)
[2024-05-28 22:03] LABS: Urine Albumin 2+ (Neg - Trace); Urine Bilirubin Negative (Negative); Urine Character Clear (Clear); Urine Color Yellow; Urine Glucose Negative (Negative); Urine Ketone Negative (Negative); Urine Leukocyte 1+ (Negative); Urine Nitrite Negative (Negative); Urine Occult Blood 4+ (Negative); Urine Specific Gravity 1.015 (<1.030); Urine Urobilinogen Negative (Neg - 1+)
[2024-05-28 22:10] LABS: Urine Squamous Cell 16-20 /LPF (Few)
[2024-05-28 22:12] LABS: Urine Bacteria Few (Negative); Urine Calcium Oxalate Crystals Seen; Urine Red Blood Cell 16-20 /HPF (0-2)
[2024-05-28] MEDS: RESTASIS 0.05% OPHTHALMIC EMULSION 1 DROPS BOTH EYES (22:40)
[2024-05-29] VITALS (14 sets, daily range): BP systolic 71–158; BP diastolic 57–114; BMI 23.3
[2024-05-29 05:00] LABS: Hematocrit 32.3 % (37.0-47.0); Hemoglobin 10.3 g/dL (12.0-16.0); Mean Corp Hgb Conc. 31.9 g/dL (33.0-37.0); Mean Corpuscular Hgb 26.1 pg (27.0-31.0); Mean Platelet Volume 9.7 fL (7.4-10.4); Platelet Count 273 10^3/uL (130-400); Red Blood Cell Count 3.94 10^6/uL (4.20-5.40); Red Cell Dist. Width 20.4 % (11.5-14.5); White Blood Cell Count 12.9 10^3/uL (4.8-10.8)
[2024-05-29 05:26] LABS: Vancomycin Random 11.9 ug/ml
[2024-05-29 05:39] LABS: Glucose 80 mg/dl (70-99); Total Protein 4.5 g/dl (6.3-8.2)
[2024-05-29 06:03] LABS: LDH 199 U/L (120-246)
[2024-05-29] MEDS: SYNTHROID 50 MCG PO (06:13)
[2024-05-29 09:27] LABS: Body Fluid pH 7.43
[2024-05-29 09:59] LABS: Body Fluid Glucose 84 mg/dl
[2024-05-29 10:14] LABS: Body Fluid Albumin 1.1 g/dl
[2024-05-29 10:37] LABS: Body Fluid Triglycerides < 30 mg/dl
[2024-05-29 10:40] LABS: Body Fluid Mononuclear 48.8 %; Body Fluid Polymorphonuclear 51.2 %; Body Fluid WBC 322 /CUMM
[2024-05-29 10:42] LABS: Body Fluid Second Tech CF
--- NOTE | 2024-05-29 10:52 | CM ---
Addendum entered by Natasha Reyez 05/29/24 15:39:
Medicare does not require an auth for pleurx
Call with [facility] and they are not able to manage pleurx for non-hospice patients
Call with PCP office per son's request- spoke with Kenia GRIDER who visits pt in home
PCP is not able to send nurse multiples times weekly to manage pleurx
Zip code is out of area for [facility]
Call with [facility]- pleurx can be managed under their service
Family/pt will need to be taught care and they will support and teach
Pleurx and all of homecare order will need to be managed by oncologist
Update via TT/Dr Prasad
Call with son with update- he noted he and sister are able to manage pleurx and provide daily care if needed
Referral sent to [facility] for possible pleurx needs
Original Note:
CM met with pt, spouse/Donaldo and son/Cb/ARSH bedside
Pt typically resides with spouse but spouse currently staying at [facility] in [place]
[facility] and has stairglide to main living and 2nd stairglide to 2nd floor
Pt is current with [facility] and is currently receiving a VIDEO TAPE EDITOR 8-10 hours weekly through [facility]
Family in process of establishing waiver services for pt
Between [facility] and family, pt has daily care
She is AxO 3x and primarily speaks English, understands Bulgarian
No home O2 or neb baseline
Pt is typically indep with ambulation with a WW and requires sup for ADLs
She was discharged from [facility] 2 weeks prior where she received STR
[facility] is SNF preference is placement is needed again on dc
Pt is current with [facility] and currently taking oral estrogen
Discussion with onc, requesting CM look into pleurx at home for pt and whether insurance will cover
CM to follow up
Pt will likely benefit from PT/OT evals once appropriate
Discharge Disposition- home, anticipate with [facility]
[2024-05-29] MEDS: RESTASIS 0.05% OPHTHALMIC EMULSION 1 DROPS BOTH EYES ×3 (11:20→21:39)
--- NOTE | 2024-05-29 11:20 | W.CON.PAL ---
Consultation
-
Date/Time Consultation Requested: 05/28
Date/Time Consultation Performed: 05/29
Performing Provider: Jyoti Mclaughlin
Reason for Consult: Goals of Care Discussion
Primary Diagnosis: recurrent endometrial cancer with mets
Reason for Admission
Illness Course/HPI
83 year old F with history of recurrent endometrial cancer to ?liver, lungs with malignant ascites and frequent pleural effusions requiring thoracentesis. Recent admit at [facility] with NV, discharged home and back to with recurrent.
Previously had cancer treatment at [facility], now seeing Dr Prasad and Layo at [place]. Off treatment since January due to side effects. Hospice has been recommended.
Had thoracentesis today - considering pleurex placement.
Seen at bedside with spouse and son present. Feeling better after thoracentesis with less nausea. Oncology had just been in and discussed hospice. Patient has aide support/home care already and family feels hospice will not do much to help with
their needs. Explained hospice services and symptom management. They would like to see if she can 'get back on her feet' and go from there. They are aware she is hospice appropriate. She lives in [facility], so out of our service area for palliative
care
Objective Data
-
Objective Data:
Vital Signs
Temp Pulse Resp BP Pulse Ox
97.5 F 78 20 111/71 99
05/29/24 09:52 05/29/24 09:52 05/29/24 09:52 05/29/24 09:52 05/29/24 09:52
Laboratory Results
05/29/24 04:46
05/29/24 04:46
Total Protein 4.5 g/dl (6.3-8.2) L D 05/29/24 04:46
Albumin 3.1 g/dl (3.5-5.0) L 05/28/24 13:03
Urine Color Yellow 05/28/24 21:53
Urine Clarity Clear (Clear) 05/28/24 21:53
Urine pH 5.0 (5.0-9.0) 05/28/24 21:53
Ur Specific [place] 1.015 (<1.030) 05/28/24 21:53
Urine Ketones Negative (Negative) 05/28/24 21:53
Urine Bilirubin Negative (Negative) 05/28/24 21:53
Palliative Performance Scale
Palliative Performance Scale:
PPS Level Ambulation Activity & Evidence of Disease Self Care Intake Conscious Level
100% Full Normal Activity & Work; Full Intake Full
No Evidence of Disease
90% Full Normal Activity & Work; Full Normal Full
Some Evidence of Disease
80% Full Normal Activity with Effort Full Normal or Full
Some Evidence of Disease Reduced
70% Reduced Unable Normal Job/Work Full Normal or Full
Significant Disease Reduced
60% Reduced Unable Hobby/Housework Occasional Normal or Full or Confusion
Significant Disease Assistance Reduced
50% Mainly Sit/Lie Unable to do Any Work Considerable Normal or Full or Confusion
Extensive Disease Assistance Req'd Reduced
40% Mainly in Bed Unable to do Most Activity Mainly Assistance Normal or Full or Drowsy;
Extensive Disease Reduced +/- Confusion
30% Totally Bed Unable to do Any Activity Total Care Normal or Full or Drowsy;
Bound Extensive Disease Reduced +/- Confusion
20% Totally Bed Bound Unable to do Any Activity Total Care Minimal to Full or Drowsy;
Extensive Disease Sips +/- Confusion
10% Totally Bed Bound Unable to do Any Activity Total Care Mouth Care Drowsy or Coma;
Extensive Disease Only +/- Confusion
0%
PPS Score Level:
Palliative Performance Score Response
Palliative Performance Score Response: 50%
Physical Exam
-
General: Appears Chronically Ill and Cachectic
HEENT: Normocephalic
Respiratory: Decreased Breath Sounds
Cardiac: Regular Rhythm
GI: Nondistended
Skin: Warm
Psych: Calm
Assessment / Plan
-
Assessment/Plan:
83 year old F with recurrent metastatic endometrial cancer
- not ready for hospice
- symptom maangement
- possible pleurex catheter
Care Reviewed
Data Reviewed
Radiology procedure: Image Reviewed
Medical Tests: I reviewed
Reviewed with: Patient, Family and Physician
[2024-05-29] MEDS: LOPRESSOR PO ×2 (11:21→11:56)
[2024-05-29] MEDS: FEMARA 2.5 MG PO (11:21)
[2024-05-29] MEDS: TYLENOL 650 MG PO ×2 (11:21→18:11)
[2024-05-29] MEDS: ELIQUIS 2.5 MG PO ×2 (11:21→21:39)
[2024-05-29] MEDS: KCL 10 MEQ PO (11:22)
[2024-05-29] MEDS: RESTASIS 0.05% OPHTHALMIC EMULSION BOTH EYES (11:56)
[2024-05-29 13:00] LABS: Body Fluid LDH 7869 U/L
--- NOTE | 2024-05-29 13:26 | W.PN.HOSP.TC ---
Addendum entered and electronically signed by Ally Cope MD 05/29/24 14:58:
I saw and evaluated the patient. I reviewed the resident�s note and agree with findings and plan as documented in the resident�s note.
A/P:
# Intractable N/V in setting of metastatic endometrial cancer with malignant ascites and recurrent pleural effusion
no longer on chemotherapy
Continue Zofran, started Compazine for nausea control
Pain control
Overall poor prognosis
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
GOC discussion ongoing with pt and family
# Malignant ascites
s/p paracentesis 05/29: 600 cc of dark cathi ascitic fluid drained
Not SBP- PMN <250
# Malignant pleural effusion
s/p thoracentesis 05/29: 1150 cc of clear cathi pleural fluid
s/p Pleurx catheter placement for symptom control
Follow Pleural fluid results
# Leukocytosis, likely reactive
Continue to monitor
# Atrial fibrillation with RVR
Continue Eliquis
Hold metoprolol and digoxin due to bradycardia
# Bradycardia
Hold metoprolol and digoxin
On telemetry
# History of endometrial cancer on letrozole
# Bilateral lower extremity edema
# Hypothyroidism on levothyroxine
# GERD on PPI
DVT prophylaxis-Eliquis
DNR
Regular diet
Original Note:
Today's Communication/Plan
-
PT/OT
Family and patient declines hospice
Continue to monitor symptoms-nausea/vomiting
S/p paracentesis and thoracentesis
Possible Pleurx catheter
Assessment / Plan
Assessment / Plan
Impression
Nausea/intractable vomiting in the setting of endometrial carcinoma
Malignant ascites
Malignant pleural effusion
Leukocytosis
Atrial fibrillation with RVR
Bradycardia
History of endometrial carcinoma
Bilateral lower extremity edema
Hypothyroidism
GERD
Plan
Nausea/intractable vomiting the setting of endometrial cancer
Not currently on chemotherapy as patient declines
Continue Zofran, start Compazine
Consider Reglan if symptoms are not relieved
Pain control
Overall poor prognosis
RADIATOR TESTER oncology following
Palliative care following
PT/OT
Malignant ascites
s/p paracentesis-600 cc of dark cathi ascitic fluid drained
Not SBP- PMN <250
Malignant pleural effusion
S/p thoracentesis-1150 cc of clear cathi pleural fluid
Pleural fluid cultures pending
Possible Pleurx catheter
iRad consulted
Leukocytosis
Likely reactive
Continue to monitor
Atrial fibrillation with RVR
Continue Eliquis
Hold metoprolol and digoxin due to bradycardia
Bradycardia
Hold metoprolol and digoxin
On telemetry
History of endometrial cancer
Continue letrozole
Bilateral lower extremity edema
Hold Lasix
Hypothyroidism
Continue levothyroxine
GERD
Continue PPI
DVT prophylaxis-Eliquis
DNR
Regular diet
Discussed in length with daughter via phone, family declines hospice for now. Daughter wants to continue managing symptoms and to move forward with Pleurx catheter. She states that she will discuss with Dr. Prasad and primary care physician
regarding hospice care. I told the daughter that overall prognosis is poor. Patient declines chemotherapy.
Anticipated Discharge: > 48 hours
Subjective/Interval History
-
Date of Service: May 29, 2024
s/p paracentesis and thoracentesis
Objective Data
-
Labs:
Laboratory Results
05/29/24
04:46
WBC 12.9 H
Hgb 10.3 L
Hct 32.3 L
Plt Count 273 D
Glucose 80
Vital Signs:
Vital Signs
Temp Pulse Resp BP Pulse Ox
97.6 F 73 16 158/114 95
05/29/24 11:35 05/29/24 11:35 05/29/24 11:35 05/29/24 11:35 05/29/24 11:35
Review of Systems
-
All other systems: Reviewed and negative
Physical Exam
-
General: Appears Chronically Ill and Other (Very frail appearing)
HEENT: Normocephalic and Atraumatic
Respiratory: Clear to Auscultation
Cardiac: Regular Rhythm and S1/S2
GI: Nondistended
Musculoskeletal: No Edema
Neuro: AO x 3
Psych: Calm
Data Reviewed
-
CT Scan: Report Reviewed by me and Discussed with Physician
Labs: Labs Reviewed by me and Discussed with Physician
--- NOTE | 2024-05-29 14:16 | PTCARENOTE ---
Addendum entered by Gisselle Chapman RN 05/29/24 14:46:
Clarification: Metoprolol and Digoxin held per physician order.
Original Note:
During ambulation to bathroom, HR noted to be 120-140s in afib. Patient due for digoxin and metoprolol, this RN went into room to complete med pass. 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 Patient
asymptomatic. EKG obtained, rhythm back in 70s, in afib. Dr. Cope and Dr. Mark aware.
[2024-05-29] MEDS: ZOFRAN 4 MG IV (14:33)
[2024-05-29 15:22] LABS: Body Fluid Amylase 449 U/L
[2024-05-29] MEDS: COMPAZINE 10 MG PO (21:42)
[2024-05-29] MEDS: NSS 1000 IV (23:24)
[2024-05-30 03:53] VITALS: BP 113/66
[2024-05-30 05:12] LABS: Hematocrit 31.3 % (37.0-47.0); Hemoglobin 9.9 g/dL (12.0-16.0); Mean Corp Hgb Conc. 31.6 g/dL (33.0-37.0); Mean Corpuscular Hgb 26.1 pg (27.0-31.0); Mean Corpuscular Volume 82.4 fL (81.0-99.0); Mean Platelet Volume 10.4 fL (7.4-10.4); Platelet Count 275 10^3/uL (130-400); Red Cell Dist. Width 20.5 % (11.5-14.5)
[2024-05-30] MEDS: SYNTHROID 50 MCG PO (05:15)
[2024-05-30 06:00] VITALS: BMI 21.2
[2024-05-30 07:35] VITALS: BP 129/81
[2024-05-30] MEDS: ELIQUIS 2.5 MG PO ×2 (08:51→20:22)
[2024-05-30] MEDS: RESTASIS 0.05% OPHTHALMIC EMULSION 1 DROPS BOTH EYES ×3 (08:51→17:17)
[2024-05-30] MEDS: FEMARA 2.5 MG PO (08:51)
[2024-05-30] MEDS: KCL 10 MEQ PO (08:51)
[2024-05-30 09:42] LABS: Blood Urea Nitrogen 21 mg/dl (7-17); Calcium 8.4 mg/dl (8.4-10.2); Carbon Dioxide 25 mmol/L (22-30); Chloride 110 mmol/L (98-107); Estimated Creatinine Clearance 55 ml/min; Glucose 112 mg/dl (70-99); Magnesium 1.8 mg/dl (1.6-2.3); Potassium 3.7 mmol/L (3.5-5.1); Sodium 139 mmol/L (135-145); eGFR > 60.00
[2024-05-30] MEDS: SENOKOT-S 1 TABLET PO (09:46)
[2024-05-30] MEDS: MIRALAX 17 GRAMS PO (09:51)
[2024-05-30] MEDS: DULCOLAX 10 MG RECTAL (10:40)
[2024-05-30 11:45] VITALS: BP 135/87
--- NOTE | 2024-05-30 11:45 | PTCARENOTE ---
Addendum entered by Rosanna Paez RN 05/30/24 13:49:
After medication given, pt now with HRs dropping into the 30s at times. Rates do not sustain and patient is asymptomatic. Dr Mark made aware. No new orders given.
Original Note:
Patient with increased HR's this AM 100s-120s especially when OOB-BSC. Dr Mark made aware with orders to restart PO Metoprolol 25mg. Will continue to monitor closely.
[2024-05-30] MEDS: LOPRESSOR 25 MG PO (11:52)
--- NOTE | 2024-05-30 12:57 | W.PN.HOSP.TC ---
Addendum entered and electronically signed by Ally Cope MD 05/30/24 14:15:
I saw and evaluated the patient. I reviewed the resident�s note and agree with findings and plan as documented in the resident�s note.
A/P:
# Intractable N/V in setting of metastatic endometrial cancer with malignant ascites and recurrent pleural effusion
no longer on chemotherapy
Continue Zofran, started Compazine for nausea control
Pain control
Overall poor prognosis
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
GOC discussion ongoing with pt and family
# Malignant ascites
s/p paracentesis 05/29: 600 cc of dark cathi ascitic fluid drained. No SBP
# Malignant pleural effusion
s/p thoracentesis 05/29: 1150 cc of clear cathi pleural fluid
for Pleurx catheter placement 05/30 for symptom control
# Leukocytosis, likely reactive
Continue to monitor
# Atrial fibrillation with RVR
Continue Eliquis
Hold metoprolol and digoxin due to bradycardia
# Bradycardia, improved
resume home metoprolol with holding parameter
cont to hold [employer] digoxin
IV Lopressor PRN for HR > 120
# History of endometrial cancer on letrozole
# Bilateral lower extremity edema
# Hypothyroidism on levothyroxine
# GERD on PPI
DVT prophylaxis-Eliquis
DNR
Regular diet
Dispo: Goals of care discussion ongoing. Final disposition to be determined
Original Note:
Today's Communication/Plan
-
Discussed in length with daughter son, about goals of care. For now family would like to speak to the hospice nurse for more information. Patient will be getting Pleurx catheter possibly today. Overall poor prognosis, patient declines
chemotherapy.
Assessment / Plan
Assessment / Plan
Impression
Nausea/intractable vomiting in the setting of endometrial carcinoma
Malignant ascites
Malignant pleural effusion
Leukocytosis
Atrial fibrillation with RVR
Bradycardia
History of endometrial carcinoma
Bilateral lower extremity edema
Hypothyroidism
GERD
Plan
Nausea/intractable vomiting the setting of endometrial cancer
Not currently on chemotherapy as patient declines
Continue Zofran, Compazine
Consider Reglan if symptoms are not relieved
Pain control
Overall poor prognosis
TERRITORY BUSINESS MANAGER oncology following
Palliative care following
Poor prognosis overall
Malignant ascites
s/p paracentesis-600 cc of dark cathi ascitic fluid drained
Not SBP- PMN <250
Malignant pleural effusion
S/p thoracentesis-1150 cc of clear cathi pleural fluid
Pleural fluid cultures pending
Possible Pleurx catheter
iRad consulted
Leukocytosis
Likely reactive
Continue to monitor
Atrial fibrillation with RVR
Continue Eliquis
Hold metoprolol and digoxin due to bradycardia
Bradycardia
Hold metoprolol and digoxin
On telemetry
History of endometrial cancer
Continue letrozole
Bilateral lower extremity edema
Hold Lasix
Hypothyroidism
Continue levothyroxine
GERD
Continue PPI
DVT prophylaxis-Eliquis
DNR
Regular diet
Discussed in length with daughter son, about goals of care. For now family would like to speak to the hospice nurse for more information. Patient will be getting Pleurx catheter possibly today.
Anticipated Discharge: 24 - 48 hours
Subjective/Interval History
-
Date of Service: May 30, 2024
Heart rate now increasing to 120s
Objective Data
-
Labs:
Laboratory Results
05/30/24 05/30/24
04:56 09:09
WBC 11.0 H
Hgb 9.9 L
Hct 31.3 L
Plt Count 275
Sodium 139
Potassium 3.7
Chloride 110 H
Carbon Dioxide 25
BUN 21 H
Creatinine 0.6
Glucose 112 H
Calcium 8.4
Vital Signs:
Vital Signs
Temp Pulse Resp BP Pulse Ox
97.0 F 73 16 135/87 97
05/30/24 11:45 05/30/24 11:45 05/30/24 11:45 05/30/24 11:45 05/30/24 11:45
I&O
05/29/24 05/30/24 05/31/24
06:59 06:59 06:59
Intake Total 0 / 0
Balance 0 / 0
Review of Systems
-
All other systems: Reviewed and negative (Except mentioned)
Abdomen/GI: Reports Other (No appetite)
Physical Exam
-
General: Appears Chronically Ill
HEENT: Normocephalic and Atraumatic
Respiratory: Clear to Auscultation
Cardiac: Regular Rhythm and S1/S2
GI: Nondistended
Musculoskeletal: Edema, Right Lower Extrem (Pitting 2+) and Edema, Left Lower Extrem (Pitting 2+)
Neuro: AO x 3
Psych: Calm
Data Reviewed
-
Diagnostic Radiology: Report Reviewed by me and Discussed with Physician
Labs: Labs Reviewed by me and Discussed with Physician
[2024-05-30] MEDS: ZOFRAN 4 MG IV (14:39)
[2024-05-30 15:30] VITALS: BP 155/91
--- NOTE | 2024-05-30 15:44 | PTCARENOTE ---
Patient vomited and dry heaving a small amount of liquid after attempting to eat. Also noted to having longer pauses with HRs in the 30s-40s. BP 155/91. Dr Mark made aware who will come see the patient. Family at bedside.
[2024-05-30 19:37] VITALS: BP 104/67
[2024-05-30] MEDS: LOPRESSOR PO (20:27)
[2024-05-30] MEDS: RESTASIS 0.05% OPHTHALMIC EMULSION BOTH EYES (21:01)
[2024-05-30 23:55] VITALS: BP 126/76
[2024-05-31] VITALS (7 sets, daily range): BP systolic 107–141; BP diastolic 72–85; BMI 21.8
[2024-05-31] MEDS: NSS 1000 IV (00:42)
[2024-05-31 04:15] LABS: Hematocrit 33.2 % (37.0-47.0); Hemoglobin 10.3 g/dL (12.0-16.0); Mean Corpuscular Hgb 25.8 pg (27.0-31.0); Mean Corpuscular Volume 83.2 fL (81.0-99.0); Mean Platelet Volume 10.1 fL (7.4-10.4); Platelet Count 300 10^3/uL (130-400); Red Blood Cell Count 3.99 10^6/uL (4.20-5.40); Red Cell Dist. Width 21.2 % (11.5-14.5); White Blood Cell Count 13.3 10^3/uL (4.8-10.8)
[2024-05-31 04:38] LABS: Blood Urea Nitrogen 17 mg/dl (7-17); Calcium 8.5 mg/dl (8.4-10.2); Carbon Dioxide 26 mmol/L (22-30); Chloride 109 mmol/L (98-107); Estimated Creatinine Clearance 55 ml/min; Glucose 98 mg/dl (70-99); Magnesium 1.8 mg/dl (1.6-2.3); Potassium 3.8 mmol/L (3.5-5.1); Sodium 140 mmol/L (135-145); eGFR > 60.00
[2024-05-31] MEDS: SYNTHROID 50 MCG PO (05:40)
--- NOTE | 2024-05-31 06:20 | W.PN.GYNONC ---
Today's Communication
-
N/A
Impression / Plan
-
This patient has recently transferred her care for management of endometrial cancer to [facility]. Since I met her I have performed the investigation and no most importantly that her performance status is very poor and her options
of management is very limited. She has been managed with antiestrogen hormonal therapy.
#N/V
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
consider GI consult to see if any options availble
COnsider dmall bowel follow through with water based contrast (grastrograffin not barium) to see if there is SBO
# Bilateral malignant large pleural effusion
She has had prior thoracentesis. Given the large volume and frequency of these she would be best managed by placement of Pleurx catheter at least 1 possibly bilateral
I would request interventional radiology to place 1 Pleurx catheter at this time
I am happy to manage this as outpatient
consider pulmonary consult to reinforce recommendation
# Malignant ascites
She has small volume ascites in comparison to the pleural effusion, I do not see any obvious bowel obstruction. I do not feel that paracentesis going to be beneficial in this setting
# History of endometrial cancer
# Lesions within the anterior subcapsular liver concern for hepatic metastasis
-Letrozole continue
Given she is probably n.p.o. due to nausea and vomiting I will hold off on treatment.
Unfortunately there is very little in terms of therapeutics that can be offered to the patient. She is adamant that she does not want any chemotherapy. She has very poor performance status and in most of the visits in my office she has been in a
wheelchair. My recommendation is to consider palliative care consultation and consider transition of the patient to hospice.
# Leukocytosis/lactic acidosis
Patient is afebrile, she does not appear septic but most likely she is volume depleted, recommend IV hydration and close monitoring
#A-fib with RVR
-EKG with A-fib with RVR
- Heart rate in the 100
- Eliquis continue
- Digoxin and metoprolol continued
# CODE STATUS
- CPR but no intubation
Subjective / Interval History
-
stillnot taking po properly
denies any pain
looks cachectic and frail
Objective Data
-
Lab Results:
05/31/24 03:56
05/31/24 03:55
Physical Exam
Vital Signs / I&O
Vitals
Temp Pulse Resp BP Pulse Ox
98.3 F 76 16 107/72 96
05/31/24 03:24 05/31/24 03:24 05/31/24 03:24 05/31/24 03:24 05/31/24 03:24
I&O
05/28/24 05/29/24 05/30/24 05/31/24
06:59 06:59 06:59 06:59
Intake Total 0 / 0 960 / 960
Balance 0 / 0 960 / 960
[2024-05-31] MEDS: LOPRESSOR 25 MG PO (08:01)
[2024-05-31] MEDS: FEMARA 2.5 MG PO (08:01)
[2024-05-31] MEDS: ELIQUIS 2.5 MG PO (08:02)
[2024-05-31] MEDS: RESTASIS 0.05% OPHTHALMIC EMULSION 1 DROPS BOTH EYES ×2 (08:03→12:33)
[2024-05-31] MEDS: KCL PO (08:06)
--- NOTE | 2024-05-31 10:00 | PTCARENOTE ---
Pt refused her potassium this morning due to the pill being too big. Discussed with Dr. Cope if she wants pt to get potassium elixir or just to hold for today. Her potassium level was 3.[address] Cope indicated no need to have potassium
today.
--- NOTE | 2024-05-31 10:33 | W.PN.HOSP.TC ---
Addendum entered and electronically signed by Ally Cope MD 05/31/24 12:55:
I saw and evaluated the patient. I reviewed the resident�s note and agree with findings and plan as documented in the resident�s note.
A/P:
# Intractable N/V in setting of metastatic endometrial cancer with malignant ascites and recurrent pleural effusion
no longer on chemotherapy
Continue Zofran, Compazine for nausea control
Pain control
Overall poor prognosis
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
GOC discussion ongoing with pt and family
# Malignant ascites
s/p paracentesis 05/29: 600 cc of dark cathi ascitic fluid drained. No SBP
# Malignant pleural effusion
s/p thoracentesis 05/29: 1150 cc of clear cathi pleural fluid
plan was for Pleurx catheter placement, however it seems like that pt is declining this
# Leukocytosis, likely reactive
Continue to monitor
# Atrial fibrillation with RVR
# Bradycardia, resolved
Continue Eliquis
resumed metoprolol
Cont to hold digoxin
# History of endometrial cancer on letrozole
# Bilateral lower extremity edema
# Hypothyroidism on levothyroxine
# GERD on PPI
DVT prophylaxis-Eliquis
DNR
Regular diet
Dispo: Goals of care discussion ongoing. Final disposition to be determined
Original Note:
Today's Communication/Plan
-
Possible Pleurx catheter in a.m.
NPO after midnight
check PT/INR in am
Assessment / Plan
Assessment / Plan
Impression
Nausea/intractable vomiting in the setting of endometrial carcinoma
Malignant ascites
Malignant pleural effusion
Leukocytosis
Atrial fibrillation with RVR
Bradycardia
History of endometrial carcinoma
Bilateral lower extremity edema
Hypothyroidism
GERD
Plan
Nausea/intractable vomiting the setting of endometrial cancer
Not currently on chemotherapy as patient declines
Continue Zofran, Compazine
Consider Reglan if symptoms are not relieved
Pain control
Overall poor prognosis
ARCHITECTURE TECHNICIAN oncology following
Palliative care following
Poor prognosis overall
Malignant ascites
s/p paracentesis-600 cc of dark cathi ascitic fluid drained
Not SBP- PMN <250
Malignant pleural effusion
S/p thoracentesis-1150 cc of clear cathi pleural fluid
Pleural fluid cultures pending
Possible Pleurx catheter in a.m. NPO after midnight
iRad consulted
Leukocytosis
Likely reactive
Continue to monitor
Atrial fibrillation with RVR
Continue Eliquis
Hold metoprolol and digoxin due to bradycardia
Bradycardia
Hold metoprolol and digoxin
On telemetry
History of endometrial cancer
Continue letrozole
Bilateral lower extremity edema
Hold Lasix
Hypothyroidism
Continue levothyroxine
GERD
Continue PPI
DVT prophylaxis-Eliquis
DNR
Regular diet
Anticipated Discharge: > 48 hours
Subjective/Interval History
-
Date of Service: May 31, 2024
No overnight events
Objective Data
-
Labs:
Laboratory Results
05/31/24 05/31/24 05/31/24
03:55 03:56 09:23
WBC 13.3 H
Hgb 10.3 L
Hct 33.2 L
Plt Count 300
PT Pending
INR Pending
Sodium 140
Potassium 3.8
Chloride 109 H
Carbon Dioxide 26
BUN 17
Creatinine 0.5 L
Glucose 98
Calcium 8.5
Vital Signs:
Vital Signs
Temp Pulse Resp BP Pulse Ox
98.3 F 77 16 123/84 97
05/31/24 07:41 05/31/24 08:01 05/31/24 07:41 05/31/24 08:01 05/31/24 07:41
I&O
05/30/24 05/31/24 06/01/24
06:59 06:59 06:59
Intake Total 0 / 0 1200 / 1200
Balance 0 / 0 1200 / 1200
Review of Systems
-
All other systems: Reviewed and negative
Physical Exam
-
General: Appears Chronically Ill
HEENT: Normocephalic and Atraumatic
Respiratory: Clear to Auscultation
Cardiac: Regular Rhythm and S1/S2
GI: Nontender and Nondistended
Musculoskeletal: Edema, Right Lower Extrem and Edema, Left Lower Extrem
Skin: Warm and Dry
Neuro: AO x 3
Psych: Calm
Data Reviewed
-
Labs: Labs Reviewed by me and Discussed with Physician
--- NOTE | 2024-05-31 10:40 | PTCARENOTE ---
Pt's HR dropped to the 40s in Afib, pause of 2.62 sec. Pt asymptomatic. HR back up to 80s after [address] Prisca rojo.
[2024-05-31] MEDS: ZOFRAN 4 MG IV ×2 (12:32→22:01)
--- NOTE | 2024-05-31 14:05 | PTCARENOTE ---
Pt complaining of 4/10 left chest pain radiating into left shoulder, no SOB. No nausea. Pt states that it is mainly with inspiration. BP 129/82, HR 86, RR 18,Temp. 97.9, SPO2 97% on RA. EKG completed. Dr. Cope aware of above. No order for Troponin.
Discussing with pt's family re: possible hospice. Will offer Tylenol to pt, will continue to monitor.
[2024-05-31] MEDS: TYLENOL 650 MG PO (14:17)
--- NOTE | 2024-05-31 16:34 | PN.CDI ---
CDI
- -
CDI:
Physician Documentation Request
Admit Date: 05/28/24 17:31
Dear Doctor Deedee,
Patient admitted with malignant ascites and pleural effusion
Patient also has atrial fibrillation.
Signed EKGs May 28,, all show atrial fibrillation.
Please provide further specificity regarding atrial fibrillation:
Paroxysmal atrial fibrillation - terminates spontaneously or with intervention within 7 days of onset
Persistent atrial fibrillation - episodes of continuous AF that last more than 7 days and do not self-terminate
Permanent atrial fibrillation - when a decision has been made to accept the presence of AF and there is no further attempt to restore or maintain sinus rhythm
Other - please specify
Use of terms such as suspected, likely, concern for, or probable (associated with a specific diagnosis that is being evaluated, monitored, or treated as if it exists) are acceptable and can be coded in the inpatient setting, when documented at the
time of discharge.
Thank you,
Fatimah ALVES
CDI Specialist
tiger text
Please use your independent medical judgment in providing your response.
--- NOTE | 2024-05-31 17:00 | PTCARENOTE ---
Pt has had two BMs since her small bowel study and they have been very dark brown/black. Made Dr. Cope aware. No orders to heme test at this time. Will monitor.
--- NOTE | 2024-05-31 17:05 | CM ---
Diagnostic w/u in progress. Prior to admission, patient had Karla for homecare if patient needs Accept catheter, Rudy will need to cover the home care as Karla is unable to accomodate.
Plan: Case management will continue to follow and assist with discharge planning. Home with either Petros ERICKSON or Karla. Will f/u with attending for updates regarding plan of care.
--- NOTE | 2024-05-31 18:16 | W.PN.UPDATE ---
Update Note
Progress Note Update
Add on to my note
Paroxysmal Atrial fibrillation
[2024-05-31] MEDS: RESTASIS 0.05% OPHTHALMIC EMULSION BOTH EYES ×2 (18:58→21:13)
[2024-05-31] MEDS: COMPAZINE 10 MG PO (20:19)
[2024-05-31] MEDS: LOPRESSOR PO (20:26)
[2024-05-31] MEDS: ATIVAN 0.25 MG IV (23:04)
[2024-05-31] MEDS: NSS (PRESERVATIVE FREE) 0.125 ML IV (23:04)
[2024-06-01] VITALS (7 sets, daily range): BP systolic 122–147; BP diastolic 80–95; BMI 21.4
[2024-06-01] MEDS: SYNTHROID 50 MCG PO (05:34)
[2024-06-01] MEDS: NSS 1000 IV (05:34)
--- NOTE | 2024-06-01 05:48 | W.PN.GYNONC ---
Today's Communication
-
trial of po as tolerated
to IR for pleurex cath placement
Impression / Plan
-
This patient has recently transferred her care for management of endometrial cancer to [facility]. Since I met her I have performed the investigation and no most importantly that her performance status is very poor and her options
of management is very limited. She has been managed with antiestrogen hormonal therapy.
#N/V
as per SBFT No obstruction seen
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
consider reglan 10 mg po prior ro each meal
if N/V persist, please do CT or MRI brain to exclude mets
# Bilateral malignant large pleural effusion
She has had prior thoracentesis. Given the large volume and frequency of these she would be best managed by placement of Pleurx catheter at least 1 possibly bilateral
I would request interventional radiology to place 1 Pleurx catheter at this time, discussed with IR yesterday
I am happy to manage this as outpatient
consider pulmonary consult to reinforce recommendation
# Malignant ascites
She has small volume ascites
# History of endometrial cancer
# Lesions within the anterior subcapsular liver concern for hepatic metastasis
-Letrozole continue
Given she is probably n.p.o. due to nausea and vomiting I will hold off on treatment.
Unfortunately there is very little in terms of therapeutics that can be offered to the patient. She is adamant that she does not want any chemotherapy. She has very poor performance status and in most of the visits in my office she has been in a
wheelchair. My recommendation is to consider palliative care consultation and consider transition of the patient to hospice.
# CODE STATUS
- CPR but no intubation
Subjective / Interval History
-
look and feels weak
slept on and off
she had SBFT yesterday, had a hard time with tolerating contrast, vomited several times
Objective Data
-
Lab Results:
05/31/24 03:55
Physical Exam
Vital Signs / I&O
Vitals
Temp Pulse Resp BP Pulse Ox
97.8 F 113 16 137/86 95
06/01/24 03:04 06/01/24 03:04 06/01/24 03:04 06/01/24 03:04 06/01/24 03:04
I&O
05/29/24 05/30/24 05/31/24 06/01/24
06:59 06:59 06:59 06:59
Intake Total 0 / 0 1200 / 1200 400 / 400
Balance 0 / 0 1200 / 1200 400 / 400
Physical Exam
General: Poor Appetite and Other (cachestec, chronically ill looking)
Respiratory: Other (decreased BS lower half of both of chest)
Cardiac: Irregular Rhythm
GI: Soft and Non Distended
Data Reviewed
-
Diagnostic Radiology: Image personally visualized and interpreted
[2024-06-01 06:29] LABS: Hemoglobin 10.7 g/dL (12.0-16.0); Mean Corp Hgb Conc. 30.6 g/dL (33.0-37.0); Mean Corpuscular Hgb 25.8 pg (27.0-31.0); Mean Corpuscular Volume 84.5 fL (81.0-99.0); Mean Platelet Volume 10.2 fL (7.4-10.4); Platelet Count 372 10^3/uL (130-400); Red Blood Cell Count 4.14 10^6/uL (4.20-5.40); Red Cell Dist. Width 21.6 % (11.5-14.5)
[2024-06-01 06:31] LABS: INR 1.22; PT 15.9 Sec (11.4-14.6)
--- NOTE | 2024-06-01 08:18 | W.PN.HOSP.TC ---
Addendum entered and electronically signed by Ally Cope MD 06/01/24 15:14:
I saw and evaluated the patient. I reviewed the resident�s note and agree with findings and plan as documented in the resident�s note.
A/P:
# Intractable N/V in setting of metastatic endometrial cancer with malignant ascites and recurrent pleural effusion
no longer on chemotherapy
Cont zofran 4 mg Q6H ATC, cont Zofran PRN, add Compazine PRN, Tigan PRN if Compazine does not work
Overall poor prognosis, hospice appropriate
GOC discussion ongoing with pt and family
# Malignant ascites
s/p paracentesis 05/29: 600 cc of dark cathi ascitic fluid drained. No SBP
# Malignant pleural effusion
s/p thoracentesis 05/29: 1150 cc of clear cathi pleural fluid
No plan for Pleurx anymore. Patient does not complain of significant respiratory symptom, and does not want Pleurx anyway
# Leukocytosis, likely reactive and related to cancer
Continue to monitor
# Atrial fibrillation with RVR
# Bradycardia, resolved
Continue Eliquis
resumed metoprolol
Cont to hold digoxin
# History of endometrial cancer on letrozole
# Bilateral lower extremity edema
# Hypothyroidism on levothyroxine
# GERD on PPI
DVT prophylaxis-Eliquis
DNR
Regular diet
Dispo: Goals of care discussion ongoing. Final disposition to be determined
Discussed with Dr. Prasad today, he agrees with hospice.
Extensive discussion with daughter on the phone. Plan is to control nausea and hopefully discharge planning if symptom better control. Goals of care discussion ongoing
Original Note:
Today's Communication/Plan
-
Family declined Pleurx catheter
Remeron 7.5 mg to help with appetite and mood
Ongoing discussion about GOC
Assessment / Plan
Assessment / Plan
Impression
Nausea/intractable vomiting in the setting of endometrial carcinoma
Malignant ascites
Malignant pleural effusion
Leukocytosis
Atrial fibrillation with RVR
Bradycardia
History of endometrial carcinoma
Bilateral lower extremity edema
Hypothyroidism
GERD
Plan
Nausea/intractable vomiting the setting of endometrial cancer
Not currently on chemotherapy as patient declines
Continue Zofran. Hold Compazine
Start Remeron to help with appetite and mood
Pain control
Overall poor prognosis
Disagree with MRI of the brain to check for mets as patient declines chemotherapy.
Malignant ascites
s/p paracentesis-600 cc of dark cathi ascitic fluid drained
Not SBP- PMN <250
Malignant pleural effusion
S/p thoracentesis-1150 cc of clear cathi pleural fluid
Pleural fluid cultures pending
Family declined Pleurx catheter
[facility] consulted
Leukocytosis
Likely reactive
Continue to monitor
Atrial fibrillation with RVR
Continue Eliquis
Hold metoprolol and digoxin due to bradycardia
Bradycardia
Hold metoprolol and digoxin
On telemetry
History of endometrial cancer
Continue letrozole
Bilateral lower extremity edema
Hold Lasix
Hypothyroidism
Continue levothyroxine
GERD
Continue PPI
Asymptomatic bacteriuria
Afebrile, no white count unlikely UTI
No antibiotics needed at this time
DVT prophylaxis-Eliquis
DNR
Regular diet
Discussed in length with patient's daughter about goals of care, small bowel x-ray showed negative for obstruction. Overall prognosis of the patient is very poor and she is hospice appropriate.
Anticipated Discharge: > 48 hours
Subjective/Interval History
-
Date of Service: June 01, 2024
blood in vomit
Objective Data
-
Labs:
Laboratory Results
06/01/24
06:03
WBC 17.0 H
Hgb 10.7 L
Hct 35.0 L
Plt Count 372 D
PT 15.9 H
INR 1.22
Vital Signs:
Vital Signs
Temp Pulse Resp BP Pulse Ox
97.8 F 113 16 137/86 95
06/01/24 03:04 06/01/24 03:04 06/01/24 03:04 06/01/24 03:04 06/01/24 03:04
I&O
05/31/24 06/01/24 06/02/24
06:59 06:59 06:59
Intake Total 1200 / 1200 400 / 400
Balance 1200 / 1200 400 / 400
Review of Systems
-
All other systems: Reviewed and negative
Physical Exam
-
General: Appears Chronically Ill
HEENT: Normocephalic and Atraumatic
Respiratory: Clear to Auscultation
Cardiac: Regular Rhythm and S1/S2
GI: Nondistended
Musculoskeletal: Edema, Right Lower Extrem and Edema, Left Lower Extrem
Neuro: AO x 3
Psych: Calm
Data Reviewed
-
Labs: Labs Reviewed by me and Discussed with Physician
--- NOTE | 2024-06-01 08:53 | PN.CDI ---
CDI
- -
CDI:
Physician Documentation Request
Admit Date: 05/28/24 17:31
Dear Doctor Deedee,
Patient presented to ED for vomiting. She denied fever/chills and reported generalized abdominal discomfort and bloating
Per H&P Patient was 'sent home (from [facility]) on cefuroxime for 3 days for possible UTI. Patient did not take the medication at home.'
Patient was given 1 dose of IV Cefepime and 1 dose of IV Vancomycin on 05/28
05/28 urine grow Enterococcus species
UA
Laboratory Tests
05/28/24
21:53
Urine Color Yellow
Urine Clarity Clear
Urine Nitrite (Reflex) Negative
Leukocyte Esterase Rfl 1+ A
Urine WBC (Reflex) 11-15 A
Urine Bacteria (Reflex) Few A
Based on the above, could you clarify in the progress notes, the appropriate diagnosis that supports the above lab abnormalities and additional evaluation, monitoring and/or treatment rendered:
UTI
Asymptomatic bacteruria
Other
Use of terms such as suspected, likely, concern for, or probable (associated with a specific diagnosis that is being evaluated, monitored, or treated as if it exists) are acceptable and can be coded in the inpatient setting, when documented at the
time of discharge.
Thank you,
Fatimah Alcala RN, BSN
CDI Specialist
tiger text
Please use your independent medical judgment in providing your response.
[2024-06-01] MEDS: ANCEF 10 IV (09:24)
--- NOTE | 2024-06-01 09:42 | W.PN.UPDATE ---
Addendum entered and electronically signed by Bakari Rubio MD 06/01/24 10:07:
As already documented below - patient came to IR this morning for tunneled R pleural catheter placement. Procedure explained in detail to patient, who is aaox3, and was agreeable to proceed. While consenting patient, received call from daughter
stating that she had discussion with mother yesterday and they decided to not pursue catheter placement. Daughter also says brother is in agreement with her position. Although patient is consentable and capable of making decisions, we will defer
catheter placement at this time. It is not an emergent procedure/situation. It seems more family discussion is needed before moving forward. Primary team notified.
Original Note:
Documented by User: MIGUEL ÁNGEL Rubio 06/01/24 09:54
Update Note
Progress Note Update
We received a phone call from the patient's daughter regarding Asept placement. She was unaware procedure was being performed this morning. She thought the procedure was on hold. We received consent from the patient who said she wanted to have it
done today. Daughter was made aware that the patient consented. She is competent and can make her own informed decisions

Documented by User: Bakari Rubio MD 06/01/24 10:00
Update Note
Progress Note Update
-
We received a phone call from the patient's daughter regarding Asept placement. She was unaware procedure was being performed this morning. She thought the procedure was on hold. We received consent from the patient who said she wanted to have it
done today. Daughter was made aware that the patient consented. She is competent and can make her own informed decisions
[2024-06-01] MEDS: FEMARA 2.5 MG PO (10:44)
--- NOTE | 2024-06-01 10:44 | PTCARENOTE ---
Pt arrived in IRAD from 4E. PT AAOx3 asked for clarity regarding Asept catheter placement, asking how the procedure differs from previous thoracentesis she has had, if she will only receive local anesthetic. Preprocedure education given to patient,
VS obtained, antibiotics administered. At this time I called pts son (Cb), who case management listed as POA. I asked him if he would be available to come to hospital for education regarding catheter management, he asked if this catheter was for
her abdomen or chest and I explained it will allow for drainage of pleural fluid from her right chest, he told me he was in the hospital and that he might go home and return when patient was done with her procedure. I told him I would call him again
when she was done and he stated he would wait near the CT waiting area. MD at bedside to consent patient for procedure, pt agreeable. patient brought in to procedure room and placed on fluro table, at this time pts daughter called IRAD stating she
was not agreeable to procedure and no one had spoken with her, pts son called minutes later stating the same. On fluro table, pt was agreeable to catheter placement, stating 'please i want the catheter'. procedure ultimately canceled and patient is
understanding that she needs to have a conversation with her children to express her wishes.
[2024-06-01] MEDS: RESTASIS 0.05% OPHTHALMIC EMULSION 1 DROPS BOTH EYES ×2 (10:45→17:33)
[2024-06-01] MEDS: KCL PO ×2 (10:45→10:50)
[2024-06-01] MEDS: ZOFRAN 4 MG IV ×2 (11:16→22:32)
[2024-06-01 12:43] LABS: Blood Urea Nitrogen 20 mg/dl (7-17); Calcium 8.9 mg/dl (8.4-10.2); Carbon Dioxide 24 mmol/L (22-30); Chloride 111 mmol/L (98-107); Estimated Creatinine Clearance 47 ml/min; Glucose 103 mg/dl (70-99); Potassium 3.9 mmol/L (3.5-5.1); Sodium 142 mmol/L (135-145); eGFR > 60.00
[2024-06-01] MEDS: NSS (PRESERVATIVE FREE) 10 ML IV (13:25)
[2024-06-01] MEDS: PROTONIX IV 40 MG IV (13:26)
[2024-06-01] MEDS: RESTASIS 0.05% OPHTHALMIC EMULSION BOTH EYES ×2 (13:30→21:00)
[2024-06-01] MEDS: NSS (PRESERVATIVE FREE) 0.125 ML IV ×2 (13:32→20:06)
[2024-06-01] MEDS: ATIVAN 0.25 MG IV ×2 (13:33→20:06)
--- NOTE | 2024-06-01 18:19 | PTCARENOTE ---
Received patient this am AAOx3. IVF infusing without difficulty. Pt NPO. Pt went off the unit this am to Interventional Radiology for insertion of Plurex Catheter. RN received at phone from patients daughter stating 'that the family didnt want the
procedure to be done today'. Call placed to IR and daughter transferred to IR to speak to doctor and nursing staff. Procedure was not done. Pt returned to the floor. 11:15 patient complained of nausea an vomiting. Pt medicated with Zofran IV
with moderate relief. Pt then complained of heartburn. Dr. Mark made aware. Pt medicated with IV Protonix as ordered with relief of heartburn. Pt complained of nausea around [address] Mark made aware. Pt medicated with Ativan
0.25 mg IV as ordered with relief of nausea an vomiting. Pt OOB to bedside commode. Pt voiding tea color urine. Made patient comfortable. Cont to assess patient status.
[2024-06-01] MEDS: REMERON PO ×2 (21:00→21:03)
[2024-06-01] MEDS: REMERON 7.5 MG PO (22:32)
[2024-06-01] MEDS: LOPRESSOR 5 MG IV (22:35)
[2024-06-02 03:06] VITALS: BP 118/85
[2024-06-02] MEDS: SYNTHROID 50 MCG PO (05:27)
[2024-06-02] MEDS: NSS 1000 IV ×2 (05:28→21:59)
[2024-06-02 05:56] LABS: Hematocrit 32.9 % (37.0-47.0); Hemoglobin 10.1 g/dL (12.0-16.0); Mean Corp Hgb Conc. 30.7 g/dL (33.0-37.0); Mean Corpuscular Volume 84.6 fL (81.0-99.0); Mean Platelet Volume 9.7 fL (7.4-10.4); Platelet Count 356 10^3/uL (130-400); Red Blood Cell Count 3.89 10^6/uL (4.20-5.40); Red Cell Dist. Width 22.1 % (11.5-14.5); White Blood Cell Count 15.7 10^3/uL (4.8-10.8)
[2024-06-02 06:00] VITALS: BMI 22.5
[2024-06-02 06:08] LABS: Blood Urea Nitrogen 20 mg/dl (7-17); Calcium 8.7 mg/dl (8.4-10.2); Carbon Dioxide 22 mmol/L (22-30); Chloride 113 mmol/L (98-107); Estimated Creatinine Clearance 55 ml/min; Glucose 75 mg/dl (70-99); Magnesium 1.9 mg/dl (1.6-2.3); Potassium 4.1 mmol/L (3.5-5.1); Sodium 141 mmol/L (135-145); eGFR > 60.00
[2024-06-02 07:34] VITALS: BP 127/76
[2024-06-02] MEDS: RESTASIS 0.05% OPHTHALMIC EMULSION BOTH EYES ×2 (08:50→12:18)
[2024-06-02] MEDS: FEMARA 2.5 MG PO (08:51)
[2024-06-02] MEDS: KCL PO (08:53)
--- NOTE | 2024-06-02 09:51 | W.PN.HOSP.TC ---
Today's Communication/Plan
-
see A/P
Assessment / Plan
Assessment / Plan
A/P:
# Intractable N/V in setting of metastatic endometrial cancer with malignant ascites and recurrent pleural effusion
no longer on chemotherapy
Cont zofran 4 mg Q6H ATC, cont Zofran PRN, cont Compazine PRN, Tigan PRN if Zofran/Compazine does not work
started Mirtazapine 7.5 mg HS for appetite stimulation
liberalize diet to regular with ensure supplement
Overall poor prognosis, hospice appropriate, GOC discussion ongoing
# Malignant ascites
s/p paracentesis 05/29: 600 cc of dark cathi ascitic fluid drained. No SBP
# Malignant pleural effusion
s/p thoracentesis 05/29: 1150 cc of clear cathi pleural fluid
No plan for Pleurx anymore. Patient does not complain of significant respiratory symptom, and does not want Pleurx anyway
# Leukocytosis, likely related to cancer
# Atrial fibrillation with RVR
# Bradycardia, resolved
Eliquis on hold due to mild hemoptysis noted per RN
Home Metoprolol and digoxin on hold
IV Lopressor PRN
# History of endometrial cancer on letrozole
# Bilateral lower extremity edema
# Hypothyroidism on levothyroxine
# GERD on PPI
DVT prophylaxis- SCD
DNR
Regular diet
Dispo: Goals of care discussion ongoing. Final disposition to be determined.
Extensive discussion with son in person. I have informed him how clinically ill and decompensated his mother is, and at this point, I recommend hospice. He states that he will discuss this with his sister. He asked that I do not call her before he
discusses with her.
Anticipated Discharge: > 48 hours
Subjective/Interval History
-
Date of Service: June 02, 2024
Objective Data
-
Labs:
Laboratory Results
06/02/24 06/02/24
05:26 06:00
WBC 15.7 H
Hgb 10.1 L
Hct 32.9 L
Plt Count 356
Sodium 141
Potassium 4.1
Chloride 113 H
Carbon Dioxide 22
BUN 20 H
Creatinine 0.6
Glucose 75
Calcium 8.7
Vital Signs:
Vital Signs
Temp Pulse Resp BP Pulse Ox
36.9 C 103 22 127/76 99
06/02/24 07:34 06/02/24 07:34 06/02/24 07:34 06/02/24 07:34 06/02/24 07:34
I&O
06/01/24 06/02/24 06/03/24
06:59 06:59 06:59
Intake Total 400 / 400 600 / 600
Balance 400 / 400 600 / 600
Review of Systems
-
Abdomen/GI: Reports Nausea
Physical Exam
-
General: Appears Chronically Ill and Other (frail and severely decompensated)
HEENT: Normocephalic and Atraumatic
Respiratory: Clear to Auscultation and Non Labored Respirations; Negative Accessory Resp Muscle Use
Cardiac: Regular Rhythm and S1/S2
GI: Soft
Musculoskeletal: Edema, Right Lower Extrem and Edema, Left Lower Extrem
Psych: Calm and Intact Judgement/Insight
Data Reviewed
-
Labs: Labs Reviewed by me
[2024-06-02] MEDS: ZOFRAN 4 MG IV ×3 (10:46→21:59)
[2024-06-02 11:14] VITALS: BP 141/94
[2024-06-02] MEDS: COMPAZINE 5 MG IV (12:07)
[2024-06-02] MEDS: LOPRESSOR 5 MG IV (12:09)
[2024-06-02 15:04] VITALS: BP 117/80
[2024-06-02] MEDS: RESTASIS 0.05% OPHTHALMIC EMULSION 1 DROPS BOTH EYES ×2 (16:22→21:59)
[2024-06-02] MEDS: NSS (PRESERVATIVE FREE) 0.125 ML IV (18:32)
[2024-06-02] MEDS: ATIVAN 0.25 MG IV (18:32)
[2024-06-02 19:30] VITALS: BP 114/81
[2024-06-02] MEDS: REMERON 7.5 MG PO (21:59)
[2024-06-02 23:39] VITALS: BP 121/71
[2024-06-03] VITALS (7 sets, daily range): BP systolic 112–141; BP diastolic 70–90; BMI 22.4
[2024-06-03] MEDS: LOPRESSOR 5 MG IV ×2 (01:17→21:06)
[2024-06-03] MEDS: ZOFRAN 4 MG IV ×4 (04:29→21:03)
[2024-06-03] MEDS: SYNTHROID 50 MCG PO (04:29)
[2024-06-03 04:49] LABS: Hematocrit 31.3 % (37.0-47.0); Hemoglobin 9.6 g/dL (12.0-16.0); Mean Corp Hgb Conc. 30.7 g/dL (33.0-37.0); Mean Corpuscular Hgb 26.1 pg (27.0-31.0); Mean Corpuscular Volume 85.1 fL (81.0-99.0); Mean Platelet Volume 10.1 fL (7.4-10.4); Platelet Count 336 10^3/uL (130-400); Red Blood Cell Count 3.68 10^6/uL (4.20-5.40); White Blood Cell Count 13.8 10^3/uL (4.8-10.8)
[2024-06-03 05:13] LABS: Blood Urea Nitrogen 19 mg/dl (7-17); Calcium 8.6 mg/dl (8.4-10.2); Carbon Dioxide 24 mmol/L (22-30); Chloride 115 mmol/L (98-107); Estimated Creatinine Clearance 47 ml/min; Glucose 72 mg/dl (70-99); Magnesium 1.9 mg/dl (1.6-2.3); Potassium 4.1 mmol/L (3.5-5.1); Sodium 142 mmol/L (135-145); eGFR > 60.00
--- NOTE | 2024-06-03 09:06 | W.PN.HOSP.TC ---
Today's Communication/Plan
-
Ongoing GOC discussion
Assessment / Plan
Assessment / Plan
A/P:
# Intractable N/V in setting of metastatic endometrial cancer with malignant ascites and recurrent pleural effusion
no longer on chemotherapy
Cont zofran 4 mg Q6H ATC, cont Zofran PRN, cont Compazine PRN, Tigan IM PRN if Zofran/Compazine does not work
started Mirtazapine 7.5 mg HS for appetite stimulation
liberalize diet to regular with ensure supplement
Overall poor prognosis, hospice appropriate, GOC discussion ongoing.
Pending Hospice eval for inpatient
[employer] oncologist recc GI eval for endoscopy which I do NOT agree.
Curbsided GI Dr Phillips and discussed case in detail. He also does NOT agree with endoscopy eval. I have informed this to the family.
At this point, very little we can offer, and pt is appropriate for hospice which the family is still hesitant about.
# Malignant ascites
s/p paracentesis 05/29: 600 cc of dark cathi ascitic fluid drained. No SBP
# Malignant pleural effusion
s/p thoracentesis 05/29: 1150 cc of clear cathi pleural fluid
No plan for Pleurx anymore. Patient does not complain of significant respiratory symptom, and does not want Pleurx anyway
# Leukocytosis, likely related to cancer
# Atrial fibrillation with RVR
# Bradycardia, resolved
Eliquis on hold due to black stool noted per RN
Home Metoprolol and digoxin on hold
IV Lopressor PRN
# History of endometrial cancer on letrozole
# Bilateral lower extremity edema
# Hypothyroidism on levothyroxine
# GERD on PPI
DVT prophylaxis- SCD
DNR
Regular diet with ensure
Dispo: Goals of care discussion ongoing. Final decision/disposition to be determined.
Extensive discussion with son in person and with son and daughter on the phone.
Thought for GI CS for endoscopy eval was brought up by Dr Prasad. I do not agree with further testing such as endoscopy eval. Curbsided GI Dr Phillips, he agrees that patient is NOT a candidate for EGD eval. Informed family about this.
Unfortunately, after extensive discussion with family, they are still hesitant about pursuing hospice.
Anticipated Discharge: > 48 hours
Subjective/Interval History
-
Date of Service: June 03, 2024
Objective Data
-
Labs:
Laboratory Results
06/03/24
04:25
WBC 13.8 H
Hgb 9.6 L
Hct 31.3 L
Plt Count 336
Sodium 142
Potassium 4.1
Chloride 115 H
Carbon Dioxide 24
BUN 19 H
Creatinine 0.7
Glucose 72
Calcium 8.6
Vital Signs:
Vital Signs
Temp Pulse Resp BP Pulse Ox
36.4 C 108 18 134/84 91
06/03/24 07:30 06/03/24 07:30 06/03/24 07:30 06/03/24 07:30 06/03/24 08:55
I&O
06/02/24 06/03/24 06/04/24
06:59 06:59 06:59
Intake Total 600 / 600 660 / 660
Balance 600 / 600 660 / 660
Review of Systems
-
Abdomen/GI: Reports Nausea
Physical Exam
-
General: Appears Chronically Ill and Other (frail and severely decompensated)
HEENT: Normocephalic and Atraumatic
Respiratory: Clear to Auscultation and Non Labored Respirations; Negative Accessory Resp Muscle Use
Cardiac: Regular Rhythm and S1/S2
GI: Soft
Musculoskeletal: Edema, Right Lower Extrem and Edema, Left Lower Extrem
Psych: Calm and Intact Judgement/Insight
Data Reviewed
-
Labs: Labs Reviewed by me
[2024-06-03] MEDS: FEMARA 2.5 MG PO (09:07)
[2024-06-03] MEDS: RESTASIS 0.05% OPHTHALMIC EMULSION 1 DROPS BOTH EYES ×4 (09:07→21:03)
[2024-06-03] MEDS: KCL PO (09:07)
[2024-06-03] MEDS: FLUSH (NSS) 1 FLUSH IV ×4 (09:09→18:14)
--- NOTE | 2024-06-03 10:43 | W.PN.GYNONC ---
Today's Communication
-
N/A
Impression / Plan
-
This patient has recently transferred her care for management of endometrial cancer to [facility]. Since I met her I have performed the investigation and no most importantly that her performance status is very poor and her options
of management is very limited. She has been managed with antiestrogen hormonal therapy.
#N/V
as per SBFT No obstruction seen
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
I still believe she could benefit from GI eval by EGD
# Bilateral malignant large pleural effusion
She has had prior thoracentesis. Given the large volume and frequency of these she would be best managed by placement of Pleurx catheter at least 1 possibly bilateral
I would request interventional radiology to place 1 Pleurx catheter at this time, discussed with IR yesterday
I am happy to manage this as outpatient
consider pulmonary consult to reinforce recommendation
# Malignant ascites
She has small volume ascites NOt an issue at this time
# History of endometrial cancer
# Lesions within the anterior subcapsular liver concern for hepatic metastasis
-Letrozole continue
Given she is probably n.p.o. due to nausea and vomiting I will hold off on treatment.
Unfortunately there is very little in terms of therapeutics that can be offered to the patient. She is adamant that she does not want any chemotherapy. She has very poor performance status and in most of the visits in my office she has been in a
wheelchair. My recommendation is to consider palliative care consultation and consider transition of the patient to hospice.
# CODE STATUS
- CPR but no intubation
Subjective / Interval History
-
she looks well today
seems to have responded to ativan but seems to be a bit confused
no vomiting
no dyspnea
Objective Data
-
Lab Results:
06/03/24 04:25
06/03/24 04:25
Physical Exam
Vital Signs / I&O
Vitals
Temp Pulse Resp BP Pulse Ox
97.5 F 108 18 134/84 91
06/03/24 07:30 06/03/24 07:30 06/03/24 07:30 06/03/24 07:30 06/03/24 08:55
I&O
06/01/24 06/02/24 06/03/24 06/04/24
06:59 06:59 06:59 06:59
Intake Total 400 / 400 600 / 600 660 / 660
Balance 400 / 400 600 / 600 660 / 660
[2024-06-03] MEDS: COMPAZINE 5 MG IV ×2 (11:22→18:14)
[2024-06-03] MEDS: ATIVAN 0.25 MG IV ×2 (12:50→22:15)
[2024-06-03] MEDS: NSS (PRESERVATIVE FREE) 0.125 ML IV (12:52)
[2024-06-03] MEDS: TIGAN 200 MG IM (14:03)
--- NOTE | 2024-06-03 16:39 | PTCARENOTE ---
Pt drowsy but arousable; alert, oriented x 3 when awake. THACKER weakly; OOB to BSC with asstis x1/walker, tires quickly. On room air- pulse ox 92 %, no SOB noted. Abd soft, rounded, jun very small amts PO; taking small amts fluids. pt c/o 'nausea';
no relief from anti-emetic meds. Pt has large amts oral secretions; using Yankauer prn. Voids on BSC, also incont at times; wears own Depends. IVF's NSS@ 40 ml/hr infusing via Ryt SQ port site without sx of infiltration. Resting quietly at
present. Will continue to monitor.
[2024-06-03] MEDS: NSS 1000 IV (21:03)
[2024-06-03] MEDS: REMERON 7.5 MG PO (21:03)
--- NOTE | 2024-06-03 23:40 | PTCARENOTE ---
Patient with multiple episodes of brown emesis small to moderate amount, stable vitals 129/87,99, 22/mnt, 96% 2L, applied oxygen as patient was only 88% RA. Tamica Hurtado made aware. stat CXR/ labs. See MAR for orders
--- NOTE | 2024-06-04 00:20 | W.PN.UPDATE ---
Update Note
Progress Note Update
0000 Asked to eval pt for possibly vomiting coffee grounds
Pt admitted to hospital several days ago with intractable n/v, malignant ascites and pleural effusions in the setting of endometrial cancer.
Pt has been on many antinausea meds which per nurse do not seem to be helping much. On eval pt has dark emesis on gown and in suction canister. SBFT from few days did not show abd obstruction. BMs reported have been described as dark. Notes stated
eliquis on hold for ? hemoptysis. Pt appears weak. Pt states at home emesis was described as dark-similar to current emesis. Does not smell like GI bleeding nor does it smell feculent. Will have RN hemetest emesis.
Port cxr done to r/o aspiration-official report pending but looks like reaccumulation of bilateral pleural effusions. May require thoracentesis again. Last thora 05/29 for 1150ml. Vital signs stable except oxygen level dropped with vomiting and 2
liters placed. Will add protonix IV. Check cbc,bmp,mag
will add uasyn for poss aspiration
Review of admission from [facility] 05/19 shows similar presentation of dark 'coffee ground' like emesis. treated for gastritis at that time.
[2024-06-04] MEDS: NSS (PRESERVATIVE FREE) 10 ML IV ×2 (00:23→08:38)
[2024-06-04] MEDS: PROTONIX IV 40 MG IV ×2 (00:24→08:37)
[2024-06-04 00:38] LABS: Magnesium 1.9 mg/dl (1.6-2.3)
[2024-06-04 00:39] LABS: Blood Urea Nitrogen 19 mg/dl (7-17); Calcium 8.9 mg/dl (8.4-10.2); Carbon Dioxide 21 mmol/L (22-30); Chloride 114 mmol/L (98-107); Estimated Creatinine Clearance 47 ml/min; Glucose 89 mg/dl (70-99); Potassium 4.2 mmol/L (3.5-5.1); Sodium 142 mmol/L (135-145); eGFR > 60.00
[2024-06-04 00:40] LABS: % Basophils 0.3 % (0-2); % Eosinophils 0.3 % (0-6); % Immature Granulocytes 2.9 % (0-0.5); % Lymphocytes 10.8 % (20.5-51.1); % Monocytes 6.1 % (1.7-9.3); % Neutrophils 79.6 % (42.2-75.2); Absolute Immature Granulocytes 0.4 10^3/uL (0-0.05); Absolute Lymphocytes 1.6 10^3/uL (1.2-3.4); Absolute Monocytes 0.9 10^3/uL (0.1-0.6); Absolute Neutrophils 11.9 10^3/uL (1.4-6.5); Hematocrit 34.5 % (37.0-47.0); Hemoglobin 10.7 g/dL (12.0-16.0); Mean Corpuscular Hgb 26.4 pg (27.0-31.0); Mean Platelet Volume 9.7 fL (7.4-10.4); Nucleated Red Blood Cells % 0.5 %; Platelet Count 377 10^3/uL (130-400); Red Blood Cell Count 4.06 10^6/uL (4.20-5.40); Red Cell Dist. Width 22.4 % (11.5-14.5); White Blood Cell Count 14.9 10^3/uL (4.8-10.8)
[2024-06-04 01:09] LABS: Normal RBC Morphology No
[2024-06-04 01:10] LABS: Anisocytosis 2+; Ovalocytes 1+; Polychromasia 1+; Target Cells 1+
[2024-06-04 01:11] LABS: Acanthocytes Occasional
[2024-06-04] MEDS: UNASYN IV ×3 (01:59→14:04)
[2024-06-04 03:12] VITALS: BP 129/83
[2024-06-04] MEDS: ZOFRAN 4 MG IV ×2 (03:29→10:54)
[2024-06-04] MEDS: LOPRESSOR 5 MG IV ×3 (04:18→22:56)
[2024-06-04] MEDS: SYNTHROID PO ×2 (05:36→05:41)
[2024-06-04 06:00] VITALS: BMI 22.4
[2024-06-04 06:01] LABS: Hematocrit 32.9 % (37.0-47.0); Hemoglobin 10.1 g/dL (12.0-16.0); Mean Corp Hgb Conc. 30.7 g/dL (33.0-37.0); Mean Corpuscular Hgb 26.4 pg (27.0-31.0); Mean Corpuscular Volume 85.9 fL (81.0-99.0); Mean Platelet Volume 9.8 fL (7.4-10.4); Platelet Count 353 10^3/uL (130-400); Red Blood Cell Count 3.83 10^6/uL (4.20-5.40); White Blood Cell Count 14.6 10^3/uL (4.8-10.8)
[2024-06-04 06:34] LABS: Blood Urea Nitrogen 21 mg/dl (7-17); Calcium 8.8 mg/dl (8.4-10.2); Carbon Dioxide 22 mmol/L (22-30); Chloride 113 mmol/L (98-107); Estimated Creatinine Clearance 47 ml/min; Glucose 87 mg/dl (70-99); Magnesium 1.9 mg/dl (1.6-2.3); Potassium 4.2 mmol/L (3.5-5.1); Sodium 143 mmol/L (135-145); eGFR > 60.00
[2024-06-04 07:27] VITALS: BP 118/81
[2024-06-04] MEDS: RESTASIS 0.05% OPHTHALMIC EMULSION 1 DROPS BOTH EYES ×4 (08:38→20:29)
[2024-06-04] MEDS: FEMARA 2.5 MG PO (08:51)
[2024-06-04 09:00] VITALS: BMI 22.4
[2024-06-04 11:25] VITALS: BP 123/71
--- NOTE | 2024-06-04 13:49 | W.PN.PAL2 ---
Addendum entered and electronically signed by Bhavana Junior MD 06/05/24 10:21:
Addendum : 06/04 family meeting 2:30-3PM. Attending, myself, case manger, resident , son, spouse, and patient present.
Goals of care in light over overall clinical condition was discussed. family in agreement with overall comfort oriented approach. plan to trial oral/rectal meds for nausea management. if able to achieve this will trial rehab followed by hospice. if
unable to tolerate oral medications for nausea management, likely appropriate for inpatient hospice.
Original Note:
Today's Communication
-
Palliative care update:
patient seen at bedside with primary team during rounds. Patient reports nausea better today. she expressed understanding to me that her condition is not good at this time. her goals are to improve her strength enought to meet her personal care
needs. she reports she does not have anyone at home to help her at this time, and found that she benefited in the past from rehab stay. She stated that she declined further chemotherapy. She reports decisions are made as a family with her two
children involved. primary team & CM are reaching out to family to arrange for family meeting.
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 If
she continues to have poor oral intake and severe nausea, she will become clinically decline. Prognosis likely weeks-months. already on zofran, compazine for nasuea management, PPI added which has helped. If they continue to decline hospice, then
would plan for outpatient palliative care services - patient's address is in the [place] area -if going to her home then would refer to [facility].
Assessment / Plan
-
Assessment/Plan:
Plan for family meeting tuesday.
Total floor time 40 mins
Goals of Care Discussion
Patient Goals
patient wishes to improve strength so that she can meet her own personal care needs. Patient wishes for rehab short term
Objective Data
-
Objective Data:
Vital Signs
Temp Pulse Resp BP Pulse Ox
97.9 F 135 16 123/71 99
06/04/24 11:25 06/04/24 12:29 06/04/24 11:25 06/04/24 12:29 06/04/24 11:25
Laboratory Results
06/04/24 05:49
06/04/24 05:49
PT 15.9 Sec (11.4-14.6) H 06/01/24 06:03
INR 1.22 06/01/24 06:03
Total Protein 4.5 g/dl (6.3-8.2) L D 05/29/24 04:46
Albumin 3.1 g/dl (3.5-5.0) L 05/28/24 13:03
Urine Color Yellow 05/28/24 21:53
Urine Clarity Clear (Clear) 05/28/24 21:53
Urine pH 5.0 (5.0-9.0) 05/28/24 21:53
Ur Specific [place] 1.015 (<1.030) 05/28/24 21:53
Urine Ketones Negative (Negative) 05/28/24 21:53
Urine Bilirubin Negative (Negative) 05/28/24 21:53
Palliative Performance Scale
Palliative Performance Scale:
PPS Level Ambulation Activity & Evidence of Disease Self Care Intake Conscious Level
100% Full Normal Activity & Work; Full Intake Full
No Evidence of Disease
90% Full Normal Activity & Work; Full Normal Full
Some Evidence of Disease
80% Full Normal Activity with Effort Full Normal or Full
Some Evidence of Disease Reduced
70% Reduced Unable Normal Job/Work Full Normal or Full
Significant Disease Reduced
60% Reduced Unable Hobby/Housework Occasional Normal or Full or Confusion
Significant Disease Assistance Reduced
50% Mainly Sit/Lie Unable to do Any Work Considerable Normal or Full or Confusion
Extensive Disease Assistance Req'd Reduced
40% Mainly in Bed Unable to do Most Activity Mainly Assistance Normal or Full or Drowsy;
Extensive Disease Reduced +/- Confusion
30% Totally Bed Unable to do Any Activity Total Care Normal or Full or Drowsy;
Bound Extensive Disease Reduced +/- Confusion
20% Totally Bed Bound Unable to do Any Activity Total Care Minimal to Full or Drowsy;
Extensive Disease Sips +/- Confusion
10% Totally Bed Bound Unable to do Any Activity Total Care Mouth Care Drowsy or Coma;
Extensive Disease Only +/- Confusion
0%
PPS Score Level:
Care Reviewed
Data Reviewed
Reviewed with: Physician
--- NOTE | 2024-06-04 13:59 | CM ---
Patient daughter called to CM to state that she had talked to JASMINE at [facility] and they have a bed for patient. CM tt to liaison and she confirmed they did not have referral. CM sent referral and family meeting to be held at 2:30pm. CM will
update physicians and continue to follow for discharge planning needs.
Plan; SNF
--- NOTE | 2024-06-04 14:58 | W.PN.HOSP.TC ---
Addendum entered and electronically signed by Obdulia Tovar MD 06/04/24 17:28:
I saw and evaluated the patient independently. I reviewed the resident�s note and agree with findings and plan as documented by Dr. Mark.
GENERAL: chronically ill appearing female in no apparent distress
HEENT: NC/AT--O2 NC in place--soft weak voice
HEART: irreg irreg tachy
LUNGS : decreased BS bilateral lower 1/3 lung read
ABDOM: firm, nontender, nondistended, + bowel sounds
EXT: no cyanosis, clubbing, or edema
NEUROLOGIC: grossly intact--weak
Intractable N/V in setting of metastatic endometrial cancer with malignant ascites and recurrent pleural effusion--not candidate for further chemo--change IV antiemetics to oral/rectal versions--cont PPI IV--cont mirtazapine for appetite
stimulation--diet as able--Overall poor prognosis, hospice appropriate, GOC discussion ongoing--explained likely no obstruction with small bowel follow-through and contrast reaching the colon--can ask GI for consult and endoscopy but family has
decided against that
Malignant ascites--s/p paracentesis 05/29: 600 cc of dark cathi ascitic fluid drained. No SBP
Presumed malignant pleural effusion--s/p thoracentesis 05/29: 1150 cc of clear cathi pleural fluid--No plan for Pleurx anymore
Leukocytosis, likely related to cancer
Presumed permanent atrial fibrillation with RVR--metoprolol and digoxin were on hold--restart metoprolol--patient had episode of bradycardia which is resolved--Eliquis on hold due to black stool noted per nurse
History of endometrial cancer on letrozole--Dr. Prasad on consult and recommends discussion of palliative care and transition to hospice
Bilateral lower extremity edema--due to poor p.o. intake and decreased albumin
Hypothyroidism -- levothyroxine
GERD on PPI
Severe protein calorie malnutrition--leading to peripheral edema--significantly decreased p.o. intake
DVT proph-- SCD
CODE STATUS--limited DNR
Lengthy Goals of care discussion was held in patient's room with patient's , son, nurse, Dr. Junior, Bridgett Banks from , by myself at bedside and daughter via phone. Discussed in length about severity of the illness, symptom
management, goals of care. The family expressed a clear desire to focus on symptom management, particularly controlling the patient's nausea and vomiting which are currently the primary concern. Recommended to transition the patient from IV to
oral/rectal medication. The family is not currently interested in hospice care but not opposed to hospice if she does not get better with rehab. At this time the hope for the patient to regain strength and proceed to rehab at [facility]. They
do not wish for pleurX catheter to be placed but they are agreeable to a thoracentesis prior to discharge to provide symptom relief. Overall the family remains focused on symptomatic management for nausea and vomiting.
Original Note:
Today's Communication/Plan
-
Change IV medications to oral
Compazine suppositories and scopolamine patch for nausea and vomiting
Stop antibiotics
Discussed GOC with family, see below
Assessment / Plan
Assessment / Plan
A/P:
# Intractable N/V in setting of metastatic endometrial cancer with malignant ascites and recurrent pleural effusion
no longer on chemotherapy
Cont zofran 4 mg Q6H ATC, cont Zofran PRN, cont Compazine PRN, Tigan IM PRN if Zofran/Compazine does not work
started Mirtazapine 7.5 mg HS for appetite stimulation
liberalize diet to regular with ensure supplement
Overall poor prognosis, hospice appropriate, GOC discussion ongoing.
Pending Hospice eval for inpatient
Packing Room Supervisor oncologist recc GI eval for endoscopy.
Stop IV medications, transition to oral/rectal medications for nausea and vomiting
Stop unasyn
# Malignant ascites
s/p paracentesis 05/29: 600 cc of dark cathi ascitic fluid drained. No SBP
# Malignant pleural effusion
s/p thoracentesis 05/29: 1150 cc of clear cathi pleural fluid
No plan for Pleurx anymore. Patient does not complain of significant respiratory symptom, and does not want Pleurx anyway
# Leukocytosis, likely related to cancer
# Atrial fibrillation with RVR
# Bradycardia, resolved
Eliquis on hold due to black stool noted per RN
Home Metoprolol and digoxin on hold
IV Lopressor PRN
# History of endometrial cancer on letrozole
# Bilateral lower extremity edema
# Hypothyroidism on levothyroxine
# GERD on PPI
DVT prophylaxis- SCD
DNR
Regular diet with ensure
Dispo: Goals of care discussion ongoing. Final decision/disposition to be determined.
Extensive discussion with son in person and with son and daughter on the phone.
Goals of care discussion was held in patient's room with patient's , son, nurse, Dr. Junior, Bridgett Choe at bedside and daughter via phone. Discussed in length about severity of the illness, symptom management, goals of care.
The family expressed a clear desire to focus on symptom management, particularly controlling the patient has nausea and vomiting which are currently the primary concern. Recommended to transition the patient from IV to oral/rectal medication. The
family is not currently interested in hospice care but not opposed to hospice if she does not get better with rehab. At this time the hope for the patient to regain strength and proceed to rehab at [facility]. They do not wish for pleural
catheter to be placed but they are agreeable to a thoracentesis prior to discharge to provide symptom relief. Overall the family remains focused on symptomatic management for nausea and vomiting.
Anticipated Discharge: 24 - 48 hours
Subjective/Interval History
-
Date of Service: June 04, 2024
Patient reports dark colored emesis
Objective Data
-
Labs:
Laboratory Results
06/04/24
05:49
WBC 14.6 H
Hgb 10.1 L
Hct 32.9 L
Plt Count 353
Sodium 143
Potassium 4.2
Chloride 113 H
Carbon Dioxide 22
BUN 21 H
Creatinine 0.7
Glucose 87
Calcium 8.8
Vital Signs:
Vital Signs
Temp Pulse Resp BP Pulse Ox
97.9 F 135 16 123/71 99
06/04/24 11:25 06/04/24 12:29 06/04/24 11:25 06/04/24 12:29 06/04/24 11:25
I&O
06/03/24 06/04/24 06/05/24
06:59 06:59 06:59
Intake Total 660 / 660 1320 / 1320
Balance 660 / 660 1320 / 1320
Review of Systems
-
All other systems: Reviewed and negative (except mentioned )
Physical Exam
-
General: Appears Chronically Ill
HEENT: Normocephalic and Atraumatic
Respiratory: Decreased Breath Sounds (bilaterally )
Cardiac: Regular Rhythm and S1/S2; Negative Murmur or Rub
GI: Nontender and Nondistended
Musculoskeletal: No Edema
Neuro: AO x 3
Psych: Calm
Data Reviewed
-
Diagnostic Radiology: Image personally visualized and interpreted, Report Reviewed by me and Discussed with Physician
Labs: Labs Reviewed by me and Discussed with Physician
[2024-06-04 15:18] VITALS: BP 116/77
[2024-06-04] MEDS: TRANSDERM-SCOP 1 PATCH TRANSDERM (15:25)
--- NOTE | 2024-06-04 15:41 | PTCARENOTE ---
Goals of care discussion held at pt bedside with Hospitalist, Resident, Palliative Care, Milk Route Deliverer, Nurse and pt son and present. Pt daughter also included via speaker phone. Dr. Tovar discussed with family their understand of the
severity of her illness and what their expectations were moving forward with care. She also discussed treatment options moving forward such as placement of pleurx cath, GI consult, and medication management. Dr. Tovar included that pt prognosis
is poor and that Oncology agreed pt would be suitable candidate for Hospice if family was agreeable. Family agreed that their primary concern was controlling her nausea and vomiting at this time with whishes to transition her to [facility] rehab
if possible. The family agreed that they would like to hold off on placement of any caths at this time but would be open to having throa/paracentesis done while inpatient if necessary. Family and care team agreed to transition all medications to
oral/rectal in attempt to control nausea and vomiting and eventually discharge to [facility]. Family was informed that if patient did require IV medications to control symptoms she would not be accepted to [facility]. Family agreed that if
patient symptoms are unable to be controlled with oral/rectal meds that they would be agreeable to inpatient hospice at that time.
[2024-06-04] MEDS: ZOFRAN 4 MG PO ×2 (18:09→21:43)
[2024-06-04 19:39] VITALS: BP 131/77
[2024-06-04] MEDS: COMPAZINE 25 MG RECTAL (20:36)
--- NOTE | 2024-06-04 21:27 | PTCARENOTE ---
Addendum entered by Tonie Hernádnez RN 06/04/24 22:43:
Provider notified of the following: Pt is still c/o nausea, suctioning frequently. HR is between 114-125. Pt complains of moderate pain with each breath in the left ribs (post thoracentesis). Supraclavicular retractions. BP 130sbp and RR 20s
afebrile. Unable to give po meds at this time.
Orders placed for IV Tylenol and Lopressor.
Addendum entered by Tonie Hernández RN 06/04/24 21:45:
Discussed with provider. Will administer oral Zofran, and follow up to attempt to give the remaining oral meds including Lopressor. Pt will be kept on bedrest for the remainder fo the evening.
Addendum entered by Tonie Hernández RN 06/04/24 21:32:
Provider Melvin made aware
Original Note:
pt reported nausea 1 hour after rectal Compazine. provider made aware and request made for additional PRN. Oral meds have been postpones until nausea under control
Pt requestedt o get OOb tot he commode. During stand and pivot, pt's HR jumped up to [address] Pt became SOB. Denies any pain @ this time. Pt was told that she would be kept on bedrest for the rest of the night juju to activity intolerance. Pt
currently remains in the 110s.
[2024-06-04 22:29] VITALS: BP 137/76
[2024-06-04] MEDS: REMERON PO (22:39)
[2024-06-04] MEDS: LOPRESSOR PO (22:39)
[2024-06-04] MEDS: NSS 1000 IV (22:55)
[2024-06-04] MEDS: OFIRMEV 100 IV (22:56)
[2024-06-05 03:23] VITALS: BP 138/79
[2024-06-05 05:53] LABS: Hematocrit 31.7 % (37.0-47.0); Hemoglobin 9.7 g/dL (12.0-16.0); Mean Corp Hgb Conc. 30.6 g/dL (33.0-37.0); Mean Corpuscular Hgb 26.3 pg (27.0-31.0); Mean Corpuscular Volume 85.9 fL (81.0-99.0); Mean Platelet Volume 10.2 fL (7.4-10.4); Platelet Count 323 10^3/uL (130-400); Red Blood Cell Count 3.69 10^6/uL (4.20-5.40); Red Cell Dist. Width 22.1 % (11.5-14.5)
[2024-06-05 06:02] LABS: Blood Urea Nitrogen 19 mg/dl (7-17); Calcium 8.7 mg/dl (8.4-10.2); Carbon Dioxide 23 mmol/L (22-30); Chloride 115 mmol/L (98-107); Estimated Creatinine Clearance 55 ml/min; Glucose 105 mg/dl (70-99); Magnesium 1.9 mg/dl (1.6-2.3); Potassium 4.3 mmol/L (3.5-5.1); Sodium 143 mmol/L (135-145); eGFR > 60.00
[2024-06-05] MEDS: ZOFRAN 4 MG PO ×2 (06:11→13:37)
[2024-06-05 06:16] VITALS: BP 169/91
[2024-06-05 08:11] VITALS: BP 130/87
[2024-06-05] MEDS: SYNTHROID PO (09:36)
[2024-06-05] MEDS: LOPRESSOR 25 MG PO (09:41)
[2024-06-05] MEDS: FEMARA 2.5 MG PO (09:41)
[2024-06-05] MEDS: PROTONIX 40 MG PO (09:41)
[2024-06-05] MEDS: NSS (PRESERVATIVE FREE) IV (09:41)
[2024-06-05] MEDS: LIDOCAINE 4% PATCH 1 PATCH TOPICAL (09:42)
[2024-06-05] MEDS: RESTASIS 0.05% OPHTHALMIC EMULSION 1 DROPS BOTH EYES ×2 (09:42→13:21)
[2024-06-05 11:42] VITALS: BP 128/85
--- NOTE | 2024-06-05 12:00 | CM ---
Patient seen at bedside with physicians. Patient wants to go to SNF today. CM confirmed with [facility] about bed availability, and per liaison bed available. Please call report to [phone]. Ambulance transport needed forms completed
and on chart. CM will continue to follow for discharge planning needs.
Plan; SNF
--- NOTE | 2024-06-05 13:19 | W.PN.HOSP.TC ---
Addendum entered and electronically signed by Obdulia Tovar MD 06/05/24 17:12:
I saw and evaluated the patient independently. I reviewed the resident�s note and agree with findings and plan as documented by Dr. Mark.
GENERAL: chronically ill appearing female in no apparent distress
HEENT: NC/AT--O2 NC [address]--soft weak voice
HEART: irreg irreg tachy
LUNGS : decreased BS bilateral lower 1/3 lung read
ABDOM: firm, nontender, nondistended, + bowel sounds
EXT: no cyanosis, clubbing, or edema
NEUROLOGIC: grossly intact--weak
Intractable N/V in setting of metastatic endometrial cancer with malignant ascites and recurrent pleural effusion--not candidate for further chemo--pt says did well on oral/rectal meds for n/v--cont PPI --cont mirtazapine for appetite
stimulation--diet as able--Overall poor prognosis, hospice appropriate, GOC discussion ongoing--spoke with daughter Sera and said pt does not want thora/paracentesis prior to d/c--she wants to go to [facility]--OK for d/c from our
standpoint--still believe pt will not do well at rehab
Malignant ascites--s/p paracentesis 05/29: 600 cc of dark cathi ascitic fluid drained. No SBP
Presumed malignant pleural effusion--s/p thoracentesis 05/29: 1150 cc of clear cathi pleural fluid--No plan for Pleurx anymore
Leukocytosis, likely related to cancer
Presumed permanent atrial fibrillation with RVR--metoprolol and digoxin were on hold--restart metoprolol/digoxin--patient had episode of bradycardia which is resolved--Eliquis on hold due to black stool noted per nurse
History of endometrial cancer on letrozole--Dr. Prasad on consult and recommends discussion of palliative care and transition to hospice
Bilateral lower extremity edema--due to poor p.o. intake and decreased albumin
Hypothyroidism -- levothyroxine
GERD on PPI
Severe protein calorie malnutrition--leading to peripheral edema--significantly decreased p.o. intake
DVT proph-- SCD
CODE STATUS--limited DNR
Lengthy Goals of care discussion was held in patient's room with patient's , son, nurse, Dr. Junior, Bridgett Banks from , by myself at bedside and daughter via phone on 06/04/24. Discussed in length about severity of the illness,
symptom management, goals of care. The family expressed a clear desire to focus on symptom management, particularly controlling the patient's nausea and vomiting which are currently the primary concern. Recommended to transition the patient from
IV to oral/rectal medication. The family is not currently interested in hospice care but not opposed to hospice if she does not get better with rehab. At this time the hope for the patient to regain strength and proceed to rehab at [facility].
They do not wish for pleurX catheter to be placed nor are they interested in thoracentesis prior to discharge to provide symptom relief. Overall the family remains focused on symptomatic management for nausea and vomiting.
Original Note:
Today's Communication/Plan
-
Discharge plan to [facility]
Resume all oral medications
Patient and the family declined thoracentesis or paracentesis prior to discharge. They would prefer doing that outpatient.
Assessment / Plan
Assessment / Plan
A/P:
# Intractable N/V in setting of metastatic endometrial cancer with malignant ascites and recurrent pleural effusion
no longer on chemotherapy
Cont zofran 4 mg Q6H ATC, cont Zofran PRN, cont Compazine PRN, Tigan IM PRN if Zofran/Compazine does not work
started Mirtazapine 7.5 mg HS for appetite stimulation
liberalize diet to regular with ensure supplement
Overall poor prognosis, hospice appropriate, GOC discussion ongoing.
Pending Hospice eval for inpatient
Refined Syrup Operator oncologist recc GI eval for endoscopy.
Stop IV medications, transition to oral/rectal medications for nausea and vomiting
Discharge plan to [facility]
Resume all oral medications
# Malignant ascites
s/p paracentesis 05/29: 600 cc of dark cathi ascitic fluid drained. No SBP
# Malignant pleural effusion
s/p thoracentesis 05/29: 1150 cc of clear cathi pleural fluid
No plan for Pleurx anymore. Patient does not complain of significant respiratory symptom, and does not want Pleurx anyway
# Leukocytosis, likely related to cancer
# Atrial fibrillation with RVR
# Bradycardia, resolved
Eliquis on hold due to black stool noted per RN
Home Metoprolol and digoxin on hold
IV Lopressor PRN
# History of endometrial cancer on letrozole
# Bilateral lower extremity edema
# Hypothyroidism on levothyroxine
# GERD on PPI
DVT prophylaxis- SCD
DNR
Regular diet with ensure
Dispo: Goals of care discussion ongoing. Final decision/disposition to be determined.
Extensive discussion with son in person and with son and daughter on the phone.
Goals of care discussion was held in patient's room with patient's , son, nurse, Dr. Junior, Bridgett Choe at bedside and daughter via phone. Discussed in length about severity of the illness, symptom management, goals of care.
The family expressed a clear desire to focus on symptom management, particularly controlling the patient has nausea and vomiting which are currently the primary concern. Recommended to transition the patient from IV to oral/rectal medication. The
family is not currently interested in hospice care but not opposed to hospice if she does not get better with rehab. At this time the hope for the patient to regain strength and proceed to rehab at [facility]. They do not wish for pleural
catheter to be placed but they are agreeable to a thoracentesis prior to discharge to provide symptom relief. Overall the family remains focused on symptomatic management for nausea and vomiting.
Anticipated Discharge: Today
Subjective/Interval History
-
Date of Service: June 05, 2024
Patient tolerating oral medications
Objective Data
-
Labs:
Laboratory Results
04/22/25
05:21
WBC 11.0 H
Hgb 9.7 L
Hct 31.7 L
Plt Count 323
Sodium 143
Potassium 4.3
Chloride 115 H
Carbon Dioxide 23
BUN 19 H
Creatinine 0.6
Glucose 105 H
Calcium 8.7
Vital Signs:
Vital Signs
Temp Pulse Resp BP Pulse Ox
97.6 F 75 18 128/85 96
06/05/24 11:42 06/05/24 11:42 06/05/24 11:42 06/05/24 11:42 06/05/24 11:42
I&O
06/04/24 06/05/24 06/06/24
06:59 06:59 06:59
Intake Total 1320 / 1320 900 / 900
Balance 1320 / 1320 900 / 900
Review of Systems
-
All other systems: Reviewed and negative (except mentioned)
Musculoskeletal: Reports Other (left shoulder pain )
Physical Exam
-
General: No Apparent Distress
HEENT: Normocephalic and Atraumatic
Respiratory: Decreased Breath Sounds
Cardiac: Regular Rhythm and S1/S2
GI: Nontender
Musculoskeletal: Edema, Right Lower Extrem and Edema, Left Lower Extrem
Neuro: AO x 3
Psych: Calm
Data Reviewed
-
Labs: Labs Reviewed by me and Discussed with Physician
[2024-06-05 15:53] VITALS: BP 130/82
--- NOTE | 2024-06-06 07:03 | W.DCSUMMARY ---
Addendum entered and electronically signed by Obdulia Tovar MD 06/06/24 07:44:
Read, reviewed, and agree. See same day progress note for additional details. Time spent coordinating care, DC planning, review of DC plan of care with resident, transition of care, review of records in EMR, med rec, consults, notes, d/w
consultants, nursing, family, and CM = 40 minutes
Original Note:
Discharge Summary
Discharge Data
Date of Admission: 05/28/24
Date of Discharge: 06/06/24
-
Pending Results: No
Hospital Course
Discharging Physician : Dr Yodit Mark, Dr Obdulia Davis
Disposition : [facility]
Primary care physician : Aleida Lerma
Principal Discharge diagnosis :
Intractable N/V in setting of metastatic endometrial cancer with malignant ascites and recurrent pleural effusion
Malignant ascites
Malignant pleural effusion
Leukocytosis, likely related to cancer
Musculoskeletal chest pain
Chronic Discharge diagnosis :
Atrial fibrillation with RVR
History of endometrial cancer
Bilateral lower extremity edema
Hypothyroidism
GERD
Hospital Course : 83-year-old female with history of intractable nausea and vomiting in the setting of metastatic endometrial cancer with malignant ascites and pleural effusion. Patient had refused chemotherapy. In the ED she was given antinausea
medications and fluids. Patient has been having monthly thoracentesis and paracentesis. During this hospitalization she had around 600 cc of ascitic fluid and 1.5 L of pleural fluid drained. Patient continued to be weak and unable to tolerate
oral foods/medications. Patient also had small bowel x-ray which showed no obstruction. Gynecology oncology was consulted and they recommended Pleurx catheter and palliative care. Due to the severity of the illness patient is hospice appropriate.
We had in length discussion with family and they opted to primary manage the patient's nausea/vomiting and declined Pleurx catheter. The family was not opposed to hospice if the patient did not get better at rehab. Patient was transition from IV
medications to oral medications and patient tolerated some of the oral medications. At the day of discharge patient's vitals were stable, she was discharged to [facility] for rehab. All other home medications were continued at discharge.
Important imaging findings :
05/29/2024 chest x-ray
No pneumothorax following left thoracentesis. Improved left pleural effusion.
05/31/24 small bowel x-ray
Contrast extends through the small bowel to the colon and through the colon to the rectum. No dilated loops of small bowel are identified. There is no evidence of a stricture or obstruction.
Procedure findings :
05/29/24 Paracentesis
600 cc of dark cathi ascitic fluid was evacuated.
05/29/24 thoracentesis
Successful ultrasound-guided thoracentesis, yielding 1150 cc of clear cathi pleural fluid.
Discharge Plan
-
Patient Disposition: Residential/SNF
Discharge Diagnosis/Procedures: Intractable N/V in setting of metastatic endometrial cancer with malignant ascites and recurrent pleural effusion
Malignant ascites
Malignant pleural effusion
Leukocytosis, likely related to cancer
Atrial fibrillation with RVR
History of endometrial cancer
Bilateral lower extremity edema
Hypothyroidism
GERD
Musculoskeletal chest pain
Condition: Critical
Diet: No restrictions
Activity: With assistance
Driving Restrictions: As prior to admission
Bathing Restrictions: None
Other Services: PT and OT
Referrals:
Aleida Lerma MD [Family Provider] -
Additional Discharge Medication Instructions:
Patient is tolerating oral medication. Primary focus is managing nausea and vomiting.
Start mirtazapine as appetite stimulant
Lidocaine patch is for musculoskeletal chest pain
Scopolamine patch --- nausea and vomiting
Hold KCL tab-- interaction with scopolamine patch. K is 4.3 on 06/05/24.
Resume all other home medications.
Prescriptions:
New
lidocaine 4 % Adhesive Patch,Medicated
2 patch topical DAILY Qty: 30 0RF
scopolamine base 1 mg over 3 days Patch 3 Day
1 patch transdermal Q72H Qty: 4 0RF
mirtazapine 7.5 mg Tablet
7.5 mg PO HS Qty: 30 0RF
Continued
letrozole 2.5 mg Tablet
2.5 mg PO DAILY
sennosides [senna] 8.6 mg Tablet
8.6 mg PO BIDPRN PRN (Reason: constipation)
ondansetron HCl 8 mg Tablet
8 mg PO Q8HPRN PRN (Reason: nausea)
diphenoxylate-atropine [Lomotil] 2.5-0.025 mg Tablet
1 tab PO Q6HPRN PRN (Reason: diarrhea)
levothyroxine 50 mcg Tablet
50 mcg PO DAILY
pantoprazole 40 mg Tablet,Delayed Release (Dr/Ec)
40 mg PO DAILYPRN PRN (Reason: heartburn)
furosemide 20 mg Tablet
20 mg PO DAILY
albuterol sulfate 90 mcg/actuation Hfa Aerosol Inhaler
2 puff INHALATION R Q6HPRN PRN (Reason: sob)
cyclosporine [Restasis] 0.05 % Dropperette
1 drp BOTH EYES QID
metoprolol tartrate 25 mg Tablet
25 mg PO BID
digoxin 62.5 mcg (0.0625 mg) Tablet
62.5 mcg PO DAILY
Eliquis 5 mg Tablet
5 mg PO BID
cyanocobalamin (vitamin B-12) 1,000 mcg/mL Solution
1,000 mcg IM QMONTH
Patient Comments:
05/28/24: Family unsure on this medication, just had first dose last week so unfamiliar with its details
prochlorperazine 25 mg Suppository
25 mg NM DAILYPRN PRN (Reason: nausea)
Discontinued
potassium chloride 10 mEq Tablet Extended Release
10 meq PO DAILY
Discharge Orders:
Discharge Patient (As Directed); Ordered 06/05/24
Ordered By: Yodit Mark
Discharge Date and Time
Discharge Date/Time: 06/05/24 16:13
Print Language: TURKISH
--- NOTE | 2024-06-06 09:40 | PN.CDI ---
Addendum entered and electronically signed by Obdulia Tovar MD 06/06/24 15:43:
Documentation complete
Original Note:
CDI
- -
CDI:
Physician Documentation Request
Admit Date: 05/28/24 17:31
Dear Doctor La,
Documentation includes the diagnosis of severe protein calorie malnutrition in progress notes 06/04 and 06/05.
RD notes states 'Normal BMI (18.5 to 24.9)...weight changed likely related to changed in fluid status Skin - no areas of pressure'
To ensure the quality of the medical record, based on the above information and the recognized standards for malnutrition , could you please verify in your progress notes which of the following responses best reflects the patient's nutritional
status:
Severe Malnutrition is/was present and is a clinical diagnosis (please provide additional support in the medical record)
Severe malnutrition ruled out
Other (please specify)
[place]al Criteria ([employer] Hospitalist 2017)
2 or more criteria must be present for either
non severe or severe malnutrition
Note that the criteria differs related to the
presence of an acute or chronic illness
Acute Illness Chronic Illness
Energy Intake Non Severe: <75% for >7 days Non Severe: <75% for >1 month
Severe: <50% for >5 days Severe: <75% for >1 month
Weight Loss Non Severe: 1-2% over 1 week Non Severe: 5% over 1 month
5% over 1 month 7.5% over 3 months
7.5% over 3 months 10% over 6 months
1 year N/A 20% over 1 year
Severe: >2% over 1 week Severe: >5% over 1 month
>5% over 1 month >7.5% over 3 months
>7.5% over 3 months >10% over 6 months
1 year N/A >20% over 1 year
Body Fat Non Severe: Mild Decrease Non Severe: Mild Loss
Severe: Moderate Decrease Severe: Severe Loss
Muscle Mass Non Severe: Mild Decrease Non Severe: Mild Loss
Severe: Moderate Decrease Severe: Severe Loss
Fluid Accumulation Non Severe: Mild Accumulation Non Severe: Mild Accumulation
Severe: Moderate to severe Severe: Moderate to severe
accumulation accumulation
Reduced [employer] Strength Non Severe: N/A Non Severe: N/A
Severe: Measurably reduced Severe: Measurably reduced
Use of terms such as suspected, likely, concern for, or probable (associated with a specific diagnosis that is being evaluated, monitored, or treated as if it exists) are acceptable and can be coded in the inpatient setting, when documented at the
time of discharge.
Thank you,
Fatimah Alcala RN, BSN
CDI Specialist
tiger text
Please use your independent medical judgment in providing your response.
== END 2024-06-05 16:13 | DRG 754 ==
LOC: 4 EAST ACU 17:31
PROVIDERS: Nurse Practitioner; Nurse Practitioner Family; Radiology Vascular & Interventional Radiology; Registered Nurse; Student in an Organized Health Care Education/Training Program; ADMITTING PHYSICIAN Internal Medicine; ATTENDING PHYSICIAN Internal Medicine; CONSULT PHYSICIAN Obstetrics & Gynecology Gynecologic Oncology; EMERGENCY PHYSICIAN Emergency Medicine; FAMILY PHYSICIAN Family Medicine; OTHER PHYSICIAN Nurse Practitioner Gerontology
PROC: 0W9G3ZZ Drainage of Peritoneal Cavity, Percutaneous Approach (ICD-10-PCS; 2024-05-29)
PROC: 0W9B3ZZ Drainage of Left Pleural Cavity, Percutaneous Approach (ICD-10-PCS; 2024-05-29)
DX: C54.1 Malignant neoplasm of endometrium (principal); E43 Unspecified severe protein-calorie malnutrition; J91.0 Malignant pleural effusion; R18.0 Malignant ascites; C78.7 Secondary malignant neoplasm of liver and intrahepatic bile duct; N13.6 Pyonephrosis; E87.20 Acidosis, unspecified; Z11.52 Encounter for screening for COVID-19; Z79.01 Long term (current) use of anticoagulants; I48.91 Unspecified atrial fibrillation; E03.9 Hypothyroidism, unspecified; K21.9 Gastro-esophageal reflux disease without esophagitis; Z66 Do not resuscitate; Z51.5 Encounter for palliative care; Z68.22 Body mass index [BMI] 22.0-22.9, adult; I48.0 Paroxysmal atrial fibrillation
CPT/HCPCS: 88305; 32555; 49083; 71045; 71046; 74177; 74250; 80048; 80053; 80162; 80202; 81003; 81015; 82042; 82150; 82945; 82947; 83605; 83615; 83690; 83735; 83986; 84155; 84157; 84478; 85025; 85027; 85610; 87015; 87040; 87070; 87077; 87086; 87186; 87205; 87502; 87811; 88112; 89051; 93005; 96361; 96374; 96375; 97163; 97167; 99285; Q9967